=== PATIENT | female | born 1935 | race Caucasian/White ===

== ENCOUNTER → 2023-07-13 11:00 | Outpatient (REF) | payer MEDICARE, SELFPAY | LOC: WOUND 11:00 | PROVIDERS: ATTENDING PHYSICIAN Surgery; REFERRING PHYSICIAN Family Medicine | DX: L97.822 Non-pressure chronic ulcer of other part of left lower leg with fat layer exposed (principal); I87.312 Chronic venous hypertension (idiopathic) with ulcer of left lower extremity; I87.2 Venous insufficiency (chronic) (peripheral); I10 Essential (primary) hypertension; R73.03 Prediabetes; R60.0 Localized edema | CPT/HCPCS: 97597 ==

== ENCOUNTER → 2023-07-20 09:28 | Outpatient (REF) | payer MEDICARE, SELFPAY | LOC: WOUND 09:28 | PROVIDERS: ATTENDING PHYSICIAN Surgery; REFERRING PHYSICIAN Family Medicine | DX: L97.822 Non-pressure chronic ulcer of other part of left lower leg with fat layer exposed (principal); I87.312 Chronic venous hypertension (idiopathic) with ulcer of left lower extremity; I87.2 Venous insufficiency (chronic) (peripheral); Z68.38 Body mass index [BMI] 38.0-38.9, adult; R73.03 Prediabetes; R60.0 Localized edema; I10 Essential (primary) hypertension | CPT/HCPCS: 11042; 11045 ==

== ENCOUNTER → 2023-07-27 09:25 | Outpatient (REF) | payer MEDICARE, SELFPAY | LOC: WOUND 09:25 | PROVIDERS: ATTENDING PHYSICIAN Surgery; REFERRING PHYSICIAN Family Medicine | DX: I87.313 Chronic venous hypertension (idiopathic) with ulcer of bilateral lower extremity (principal); L97.822 Non-pressure chronic ulcer of other part of left lower leg with fat layer exposed; L97.811 Non-pressure chronic ulcer of other part of right lower leg limited to breakdown of skin; I87.2 Venous insufficiency (chronic) (peripheral); I10 Essential (primary) hypertension; Z68.38 Body mass index [BMI] 38.0-38.9, adult; R73.03 Prediabetes; R60.0 Localized edema | CPT/HCPCS: 99213 ==

== ENCOUNTER → 2023-08-18 11:23 | Outpatient (REF) | payer MEDICARE, SELFPAY | LOC: WOUND 11:23 | PROVIDERS: ATTENDING PHYSICIAN Surgery; FAMILY PHYSICIAN Family Medicine | DX: I87.313 Chronic venous hypertension (idiopathic) with ulcer of bilateral lower extremity (principal); L97.822 Non-pressure chronic ulcer of other part of left lower leg with fat layer exposed; L97.811 Non-pressure chronic ulcer of other part of right lower leg limited to breakdown of skin; I87.2 Venous insufficiency (chronic) (peripheral); I10 Essential (primary) hypertension; Z68.38 Body mass index [BMI] 38.0-38.9, adult; R73.03 Prediabetes; R60.0 Localized edema | CPT/HCPCS: 11042; 11045 ==

== ENCOUNTER → 2023-08-25 13:44 | Outpatient (REF) | payer MEDICARE, SELFPAY | LOC: WOUND 13:44 | PROVIDERS: ATTENDING PHYSICIAN Surgery; FAMILY PHYSICIAN Family Medicine | DX: I87.313 Chronic venous hypertension (idiopathic) with ulcer of bilateral lower extremity (principal); L97.822 Non-pressure chronic ulcer of other part of left lower leg with fat layer exposed; L97.811 Non-pressure chronic ulcer of other part of right lower leg limited to breakdown of skin; I87.2 Venous insufficiency (chronic) (peripheral); I10 Essential (primary) hypertension; Z68.38 Body mass index [BMI] 38.0-38.9, adult; R73.03 Prediabetes; R60.0 Localized edema | CPT/HCPCS: 11042; 11045 ==

== ENCOUNTER → 2023-09-01 13:41 | Outpatient (REF) | payer MEDICARE, SELFPAY | LOC: WOUND 13:41 | PROVIDERS: ATTENDING PHYSICIAN Surgery; FAMILY PHYSICIAN Family Medicine | DX: I87.313 Chronic venous hypertension (idiopathic) with ulcer of bilateral lower extremity (principal); L97.822 Non-pressure chronic ulcer of other part of left lower leg with fat layer exposed; L97.811 Non-pressure chronic ulcer of other part of right lower leg limited to breakdown of skin; I87.2 Venous insufficiency (chronic) (peripheral); I10 Essential (primary) hypertension; Z68.38 Body mass index [BMI] 38.0-38.9, adult; R73.03 Prediabetes; R60.0 Localized edema | CPT/HCPCS: 11042; 11045 ==

== ENCOUNTER → 2023-09-08 13:37 | Outpatient (REF) | payer MEDICARE, SELFPAY | LOC: WOUND 13:37 | PROVIDERS: ATTENDING PHYSICIAN Surgery; FAMILY PHYSICIAN Family Medicine | DX: I87.313 Chronic venous hypertension (idiopathic) with ulcer of bilateral lower extremity (principal); L97.822 Non-pressure chronic ulcer of other part of left lower leg with fat layer exposed; L97.811 Non-pressure chronic ulcer of other part of right lower leg limited to breakdown of skin; I87.2 Venous insufficiency (chronic) (peripheral); I10 Essential (primary) hypertension; Z68.38 Body mass index [BMI] 38.0-38.9, adult; R73.03 Prediabetes; R60.0 Localized edema | CPT/HCPCS: 11042; 11045 ==

== ENCOUNTER → 2023-09-15 11:39 | Outpatient (REF) | payer MEDICARE, SELFPAY | LOC: WOUND 11:39 | PROVIDERS: ATTENDING PHYSICIAN Surgery; FAMILY PHYSICIAN Family Medicine | DX: I87.313 Chronic venous hypertension (idiopathic) with ulcer of bilateral lower extremity (principal); L97.822 Non-pressure chronic ulcer of other part of left lower leg with fat layer exposed; L97.811 Non-pressure chronic ulcer of other part of right lower leg limited to breakdown of skin; L03.116 Cellulitis of left lower limb; L03.115 Cellulitis of right lower limb; I87.2 Venous insufficiency (chronic) (peripheral); R60.0 Localized edema; R73.03 Prediabetes | CPT/HCPCS: 99213 ==

== ENCOUNTER 2023-09-15 17:11 | Inpatient (IN) | payer MEDICARE, SELFPAY ==
[2023-09-15 12:00] VITALS: BP 172/92
[2023-09-15 13:47] LABS: % Basophils 0.2 % (0-2); % Eosinophils 0.9 % (0-6); % Immature Granulocytes 0.3 % (0-0.5); % Lymphocytes 21.2 % (20.5-51.1); % Monocytes 8.9 % (1.7-9.3); % Neutrophils 68.5 % (42.2-75.2); Absolute Eosinophils 0.1 10^3/uL (0-0.7); Absolute Lymphocytes 1.4 10^3/uL (1.2-3.4); Absolute Monocytes 0.6 10^3/uL (0.1-0.6); Absolute Neutrophils 4.4 10^3/uL (1.4-6.5); Hematocrit 38.1 % (37.0-47.0); Hemoglobin 12.4 g/dL (12.0-16.0); Mean Corp Hgb Conc. 32.5 g/dL (33.0-37.0); Mean Corpuscular Hgb 28.4 pg (27.0-31.0); Mean Corpuscular Volume 87.2 fL (81.0-99.0); Mean Platelet Volume 8.5 fL (7.4-10.4); Nucleated Red Blood Cells % 0 %; Platelet Count 291 10^3/uL (130-400); Red Blood Cell Count 4.37 10^6/uL (4.20-5.40); Red Cell Dist. Width 14.7 % (11.5-14.5); White Blood Cell Count 6.4 10^3/uL (4.8-10.8)
[2023-09-15] MEDS: TYLENOL 1000 MG PO (13:48)
[2023-09-15 13:50] VITALS: BMI 34.0
[2023-09-15 14:02] LABS: ALT (SGPT) 25 U/L (0-35); AST (SGOT) 32 U/L (14-36); Albumin 4.1 g/dl (3.5-5.0); Alkaline Phosphatase 71 U/L (38-126); Blood Urea Nitrogen 50 mg/dl (7-17); Calcium 9.3 mg/dl (8.4-10.2); Carbon Dioxide 29 mmol/L (22-30); Chloride 95 mmol/L (98-107); Estimated Creatinine Clearance 31 ml/min; Glucose 105 mg/dl (70-99); Potassium 4.3 mmol/L (3.5-5.1); Sodium 131 mmol/L (135-145); Total Bilirubin 0.6 mg/dl (0.2-1.3); Total Protein 7.5 g/dl (6.3-8.2); eGFR 36.41
--- NOTE | 2023-09-15 14:14 | ED.GENMED ---
History of Present Illness
General
Chief Complaint: Skin Problem
Source: patient
Exam Limitations: none
Time Seen by Provider: 09/15/23 13:15
Nursing documentation reviewed up to this point in time: agreed with
Travel History
Have you had any contact with someone who has COVID-19?: No
Do you have any symptoms of coronavirus? Fever > 100 degrees, chills, cough, shortness of breath, sore throat, loss of taste or smell, muscle aches, or headache?: No
History of Present Illness
History of Present Illness:
Patient presents to ED secondary to worsening lower leg infection over the past 2 months. Patient has been evaluated by her primary care physician as well as urgent care center, and has already completed multiple antibiotics, without improvement in
symptoms. In addition, patient recently has been evaluated by wound care center, including this morning. Wound care center physician, Dr. Collazo, felt that patient's infection requires IV antibiotics. Denies fever or chills. Denies nausea or
vomiting. However, patient does report decreased appetite and generalized weakness. Denies diarrhea. Denies abdominal pain. Denies headache or dizziness.
Past History
Past History
ED Past Medical History: HTN and Hypercholesterolemia
ED Past Surgical History: Gynecological and Orthopedic
Social History
Tobacco: Non-smoker
Alcohol: None
Drug: None
Personal:
Living: with family
Review of Systems
Review of Systems
Allergies reviewed?: Yes
All Other Systems: ROS reviewed and negative except as documented in HPI and ROS
Constitutional: Reports no symptoms; Denies fever
EENT: Reports no symptoms
ABD/GI: Reports no symptoms
Musculoskeletal: Reports other (leg pain)
Skin: Reports other (leg wound/infection)
Neurological: Reports weakness; Denies headache
Phy Exam
Physical Exam
Physical Exam:
Physical Exam
General: mild painful distress, not acutely ill. afebrile
Head: nc/at. eomi
Neck: supple. normal range of motion.
Abdomen: normal bowel sounds. not tender.
Neuro: alert and oriented. no focal neurological deficits
Skin: warm to touch.
Psychiatric: well kept. interactive and cooperative
Extremities: LE b/l erythema with multiple areas of ulceration with purulent drainage.
Course
Orders/Labs/Results
Orders:
Orders
09/15/23 12:04
Electrocardiogram (*1) Urgent
Reason for Study: Vertigo / Dizzy
09/15/23 12:05
EKG- Treatment ONCE
09/15/23 13:31
Acetaminophen [Tylenol] 1,000 mg PO NOW STA
09/15/23 13:38
Complete Blood Count/With Diff Urgent
Comprehensive Metabolic Panel Urgent
Lactic Acid Q4H
Comment: CANCEL 2nd LACTIC ACID IF 1st LACTIC ACID IS LESS THAN 2
Magnesium Urgent
Blood Culture Q30M
DAVID Source: Blood/Venous
Specimen Description:
Blood Culture Q30M
DAVID Source: Blood/Venous
Specimen Description:
09/15/23 14:13
Vancomycin 1 Gram/200 ml [Vancocin] 1 gram in 200 ml IV NOW
09/15/23 14:14
0.9% Sodium Chloride 500 ml [Nss] 500 ml IV BOLUS
09/15/23 14:16
Piperacillin/Tazo 3.375 Gram [Zosyn] 3.375 gram in 50 ml IV NOW
09/15/23 Dinner
Regular
At Your Request: Limited Participation
09/15/23 15:28
Peripheral Venous Lwr Ext Bilat US [US Periph Venous LOWER Ext Josué] Urgent
Comment:
Reason For Exam: bilateral lower ext edema
09/15/23 15:30
Admit/Transfer Patient As Directed
Co-Sign Provider:
Level of Care: Inpatient admission
Assign to:: Medical/Surgical
Physician / Group: [place]
Diagnosis: Cellulitis, Infected Venous Wounds
Reason for Hospitalization: IV abx, wound care and ID consult
Expected length of stay greater than two midnights?: Yes
ELOS- Estimated Length of Stay in days: 3
I certify the patient meets the requirements for IP care: Yes
09/15/23 15:33
Code Status As Directed
Resuscitation Status: Do not resuscitate
Reached after discussion with pt or family/Healthcare POA: Yes
DNR Bracelet Application ONCE
09/15/23 16:37
HydrALAZINE [Apresoline] 5 mg IV Q6HPRN PRN
09/15/23 17:28
Urinalysis Reflex To Culture Urgent
Date Specimen was Collected: 09/15/23
Time Specimen was Collected: 17:27
09/15/23 20:07
0.9% Sodium Chloride 500 ml [Nss] 500 ml IV 50 mls/hr
Acetaminophen [Tylenol] 650 mg PO Q4HPRN PRN
Heparin 5,000 units SC Q8
09/15/23 20:07
INFECTIOUS DISEASE CONSULT Routine
Consulting Provider: Elisha Ernandez
Was physician already notified: Yes
Activity As Directed
Activity Level: Out of Bed-Early Mobility
Bladder Scan As Directed
Follow Bladder Retention/Intermittent Cath Algorithm?: Yes
PRN if no void in __ hours: 6
Frequency: Per Retention Algorithm
If Bladder Scan Result >: 400
then:: Straight cath
Intake/ Output As Directed
Frequency: Per unit guidelines
Straight Cath As Directed
Frequency: Per Retention Algorithm
Additional Instructions: straight cath as needed per acute urinary retention algorithm for 24 hrs
Additional Instructions: for bladder scan greater than 400 mL
Vital Signs As Directed
Frequency: Per unit guidelines
Weight As Directed
Frequency: Daily
Ot Eval And Treat Routine
Pt Eval And Treat Routine
Activity Level: Out of Bed-Early Mobility
DX Deep Vein Thrombosis Video Routine
09/15/23 22:00
Gabapentin [Neurontin] 600 mg PO HS
Ropinirole [Requip] 0.5 mg PO QID
09/16/23 06:00
Echo 2D MMode Color/Doppler Routine
Reason for Study: LE swelling
09/16/23 06:31
Basic Metabolic Panel IN AM
Complete Blood Count/No Diff IN AM
09/16/23 08:00
Gabapentin [Neurontin] 300 mg PO BID@0800,1400
Abnormal Lab Results
09/15/23
13:38
MCHC 32.5 L g/dL
(33.0-37.0)
RDW 14.7 H %
(11.5-14.5)
Sodium 131 L mmol/L
(135-145)
Chloride 95 L mmol/L
(98-107)
BUN 50 H mg/dl
(7-17)
Creatinine 1.4 H mg/dL
(0.6-1.0)
Glucose 105 H mg/dl
(70-99)
09/15/23 13:38
09/15/23 13:38
Vital Signs
Initial and Last Documented VS:
Initial Vital Signs
Temp Pulse Resp BP Pulse Ox
97.7 F 92 20 172/92 93
09/15/23 12:00 09/15/23 12:00 09/15/23 12:00 09/15/23 12:00 09/15/23 12:00
Last Documented Vital Signs
Temp Pulse Resp BP Pulse Ox
97.2 F 86 18 137/60 95
09/15/23 23:01 09/15/23 23:01 09/15/23 23:01 09/15/23 23:01 09/15/23 23:01
MDM/Problems Addressed
MDM/Problems Addressed:
Patient will be admitted for cellulitis, failed outpatient therapy.
Blood culture pending.
*Critical Care Note
Total Time (30-74mins, 75-104mins- exclusive of procedures): Not Applicable
ED Attending Note
-
Portions of this chart may have been created with voice recognition software.� Occasional wrong word or��sound alike� substitutions may have occurred due to the inherent limitations of voice recognition software.
Discharge Plan
Departure
Patient Disposition: Admit
Date of Disposition: 09/15/23
Time of Disposition: 14:19
Admit to: Med/Surg
Presentation/result/management discussed w/ accepting MD/DO: Hospitalist
Discharge Problem:
Bilateral cellulitis of lower leg
Interventions
Interventions:
*Risk Screen - Suicide Last Done: 09/15/23 13:10
*General Assessment Last Done: 09/15/23 17:35
*Neglect/Abuse Screening Last Done: 09/15/23 13:10
ED- Fall Risk Assessment Last Done: 09/15/23 20:09
*ED COVID-19 Vaccine History Last Done: 09/15/23 17:35
*Nursing Disposition Last Done: 09/15/23 20:09
ED-Skin Assessment Last Done: 09/15/23 17:34
Discharge Date and Time
Discharge Date/Time: 09/15/23 20:09
[2023-09-15] MEDS: ZOSYN 50 IV (14:30)
[2023-09-15] MEDS: NSS 500 IV ×2 (14:31→20:47)
[2023-09-15] MEDS: VANCOCIN 200 IV (15:16)
--- NOTE | 2023-09-15 15:37 | HPS.HSE ---
Addendum entered and electronically signed by Nirav Mcpherson MD 09/15/23 16:45:
I saw and examined the patient.
The DICER OPERATOR or PA's note was reviewed and I agree with the note.
Comment: 88-year-old female with past medical history presented syndrome, lumbar radiculopathy, chronic venous insufficiency, essential hypertension, bulimia, osteoporosis came to the hospital with worsening lower extremity wounds. Patient has been
following up at wound care center and sees Dr. Collazo outpatient. She has tried multiple courses of oral antibiotics and the wound has not much improved. Today she was at wound care center and was referred here for IV antibiotics. Consult
infectious disease. Start empiric antibiotics. Check venous Doppler ultrasound. gentle hydration and monitor. check echo. suspect she has some CKD. check urine studies.
General:�Comfortable and Conversant
HEENT:�Anicteric and Moist mucous membranes
Respiratory:�Clear and Non Labored Respirations
Cardiac:�S1/S2 and Regular Rhythm
GI:�Soft and Non Tender
Rectal:�Deferred by Provider
Musculoskeletal:�No Clubbing, No Cyanosis and Other (+3 edema bilateral lower ext)
Skin:�Warm and Other (Left lateral lower ext wound with increased slough and slight foul smell; Left Lower Ext with increased warmth to touch)
Neuro:�Awake, Alert
Psych:�Calm
I spent a total of 77 minutes with the patient or on the floor. More than 50% of this time involved counseling and coordination of care.
Original Note:
Family Physician
-
Family Physician: Mary Griffin MD
Chief Complaint
-
Worsening Lower Ext Wounds
History of Present Illness
Patient is an 88-year-old female past medical history of hypertension, hyperlipidemia, and chronic venous insufficiency who presents with worsening lower extremity wounds. Patient has been following at the wound care center. Wound care physician
expressed concern for worsening infection and sent her to the emergency department for evaluation. Patient reports she has received a few courses of oral antibiotics over the last several months, with most recent course in July. She denies
fevers, sweats or chills.
Medical History
Past Medical History
Past Medical History: Reports Other
Additional Past Medical History:
Essential Hypertension
Hyperlipidemia
Restless Leg Syndrome
Lumbar Radiculopathy
Chronic Venous Insufficiency
Osteoporosis
Past Surgical History: Reports Other
Additional Past Surgical History:
Left Hip Surgery
Hysterectomy
Varicose Vein Stripping
Hernia Repair
Social History
Tobacco: Non-smoker
Alcohol: None
Family History
Family History: Not pertinent
Allergies / Home Medications
Allergies reflects when Allergies were last updated in [employer].
Home Medications with original date entered in [employer]
Allergy/Medication List:
Allergies
Allergy/AdvReac Type Severity Reaction Status Date / Time
lidocaine Allergy Unknown Verified 06/13/22 18:36
Home Medications
lisinopril 20 mg-hydrochlorothiazide 25 mg tablet 1 tab PO DAILY 06/13/22
ropinirole 0.5 mg tablet 0.5 mg PO QID 06/13/22
ibuprofen 400 mg tablet 400 mg PO Q6HPRN PRN mod pain #1 tab 06/16/22
alendronate 70 mg tablet (Fosamax) 70 mg PO QWEEK 09/15/23
furosemide 20 mg tablet (Lasix) 20 mg PO DAILY 09/15/23
gabapentin 600 mg tablet 600 mg PO TID 09/15/23
sodium hypochlorite 0.125 % solution (Dakin's Solution) 1 applic topical DAILY 09/15/23
Review of Systems
-
A 12 point ROS was completed and negative except as noted: Yes
Constitutional: Denies Fever or Chills
Respiratory: Denies Cough or Trouble Breathing
Cardiac: Denies Chest Pain or Palpitations
Abdomen/GI: Denies Abdominal Pain, Nausea or Vomiting
Physical Exam
Vital Signs
Vital Signs
Temp Pulse Resp BP Pulse Ox
97.7 F 92 20 172/92 93
09/15/23 12:00 09/15/23 12:00 09/15/23 12:00 09/15/23 12:00 09/15/23 12:00
Physical Exam
General: Comfortable and Conversant
HEENT: Anicteric and Moist mucous membranes
Respiratory: Clear and Non Labored Respirations
Cardiac: S1/S2 and Regular Rhythm
GI: Soft and Non Tender
Rectal: Deferred by Provider
Musculoskeletal: No Clubbing, No Cyanosis and Other (+3 edema bilateral lower ext)
Skin: Warm and Other (Left lateral lower ext wound with increased slough and slight foul smell; Left Lower Ext with increased warmth to touch)
Neuro: Awake, Alert and Other (Patient noted to be slurring her words slightly and family concurs; Apparently patient just had her gabapentin dose increased)
Psych: Calm
Laboratory Results
-
09/15/23 13:38
09/15/23 13:38
Laboratory Results
Lactic Acid Cancelled 09/15/23 17:30
Total Bilirubin 0.6 mg/dl (0.2-1.3) 09/15/23 13:38
AST 32 U/L (14-36) 09/15/23 13:38
ALT 25 U/L (0-35) 09/15/23 13:38
Alkaline Phosphatase 71 U/L (38-126) 09/15/23 13:38
Data Reviewed
-
Lab Data: Labs Reviewed by me
Impression/Plan
-
Left Lower Extremity Cellulitis, secondary to infected chronic venous insufficiency wounds
-Consult Wound Care
-Consult Infectious Disease
-Continue vancomycin and Zosyn
-Check lower ext doppler
Acute Kidney Injury
-Hold Lasix, Lisinopril and HCTZ
-Check urinalysis
-Check bladder scans
-Give small amount of IVFs overnight
-Recheck creatinine in AM
Essential Hypertension
-BP meds on hold due to ANGEL LUIS
-Monitor BP closely
Restless Leg Syndrome
-Continue Ropinirole
Lumbar Radiculopathy
-Decrease gabapentin dose 300mg BID with 600mg at Bedtime
DVT proph: SC Heparin
Code Status: DNR
[2023-09-15 17:47] LABS: Urine Albumin Trace (Neg - Trace); Urine Bilirubin Negative (Negative); Urine Character Very Cloudy (Clear); Urine Color Yellow; Urine Glucose Negative (Negative); Urine Ketone Negative (Negative); Urine Leukocyte 2+ (Negative); Urine Nitrite Negative (Negative); Urine Occult Blood Negative (Negative); Urine Specific Gravity 1.015 (<1.030); Urine Urobilinogen Negative (Neg - 1+)
[2023-09-15 17:53] LABS: Urine Amorphous Seen
[2023-09-15 17:54] LABS: Urine Bacteria Many (Negative); Urine Red Blood Cell 0-2 /HPF (0-2)
--- NOTE | 2023-09-15 18:03 | CON.ID ---
Consultation
-
Date/Time Consultation Requested: 09/15/2023, 1530
Date/Time Consultation Performed: 09/15/2023
Requesting Provider: Eveline Riley PA-C
Performing Provider: Dr. Elisha Ernandez
Reason for Consultation: Infected wounds
Chief Complaint / Past History
Chief Complaint
88 year old female with
History of Present Illness
88 year old female with HTN, venous insufficiency who developed bilateral LE non-healing wounds in Jun 2023. She has been going to wound care center. The right LE wound healed. The left LE wound was getting better until past few days when she had
increased drainage and erythema. She was seen at [facility] today who sent her to ED. The left foot and leg is very red. The right leg minimally more red than baseline, + weepage. No fevers /chills. She feels more tired than usual. She reports
compliance with compression.
Past History
Additional Past Medical History:
Hypertension
Hyperlipidemia
Restless Leg Syndrome
Lumbar Radiculopathy
Chronic Venous Insufficiency
Osteoporosis
Left Hip Surgery
Hysterectomy
Varicose Vein Stripping
Hernia Repair
Allergy History:
lidocaine Allergy (Verified 06/13/22 18:36)
Unknown
Medications Reviewed: Yes
Current Antibiotics:
Vancomycin
Zosyn
Social History
Tobacco: Non-Smoker
Alcohol: None
Drug: None
Family History
Family History: Not Pertinent
Review of Systems
Review of Systems
General: Negative Fever, Chills or Change in Appetite
HEENT: Negative Sinus Problems, Headache or Pharyngitis
Cardiovascular: Negative Chest Pain
Respiratory: Negative Dyspnea or Cough
Gasteroenterology: Negative Nausea or Vomiting
Genital / Urological: Negative Dysuria or Flank Pain
Endocrine: Weakness
Neurological: Negative Headache or Dizziness
All systems: All other systems were reviewed and were negative
Vital Signs
Temp Pulse Resp BP Pulse Ox
97.7 F 92 20 172/92 93
09/15/23 12:00 09/15/23 12:00 09/15/23 12:00 09/15/23 12:00 09/15/23 12:00
Physical Exam
Physical Exam
Constitutional: No Acute Distress and Obese
Eyes: No Conjunctival Hemorrhage and Sclera Anicteric
Cardiovascular: Regular Rate and S1/S2
Pulmonary: Clear
Gastrointestinal: Soft, Non Tender, Non Distended and Normal Bowel Sounds
Genito-Urinary: Negative CVA Tenderness
Extremities: Edema (BLE 2+)
Wound: Other (left distal leg large venous stasis wound with yellow and greenish exudate surrounded by bright erythema that extends down to foot. R distal leg with venous insufficiency pink erythema with serous drainage.)
Neurological: AO x 3
Lab / Diagnostic Study Results
09/15/23 13:38
09/15/23 13:38
Abs Immat Gran (auto) 0.0 10^3/uL (0-0.05) 09/15/23 13:38
Absolute Neuts (auto) 4.4 10^3/uL (1.4-6.5) 09/15/23 13:38
Absolute Lymphs (auto) 1.4 10^3/uL (1.2-3.4) 09/15/23 13:38
Absolute Monos (auto) 0.6 10^3/uL (0.1-0.6) 09/15/23 13:38
Absolute Basos (auto) 0.0 10^3/uL (0-0.2) 09/15/23 13:38
Immature Gran % 0.3 % (0-0.5) 09/15/23 13:38
Neutrophils % 68.5 % (42.2-75.2) 09/15/23 13:38
Lymphocytes % 21.2 % (20.5-51.1) 09/15/23 13:38
Monocytes % 8.9 % (1.7-9.3) 09/15/23 13:38
Eosinophils % 0.9 % (0-6) 09/15/23 13:38
Basophils % 0.2 % (0-2) 09/15/23 13:38
Lactic Acid Cancelled 09/15/23 17:30
Ur Squamous Epith Cells 11-15 /LPF (Few) 09/15/23 17:28
Microbiology Results
Micro:
09/15/23 17:28 Urine Culture - Pending
Urine
09/15/23 13:38 Blood Culture - Pending
Blood/Venous
09/15/23 13:38 Blood Culture - Pending
Blood/Venous
Assessment / Plan
# LLE cellulitis with infected venous stasis wound
-Narrow Vanco/Zosyn to cefepime 1g IV q6h.
- Wound Consult to see
-recommend compression with RASHEED-WRAP
# ANGEL LUIS
- abx dosing adjusted.
-avoid Vanco/zosyn combo for now.
[2023-09-15 20:05] VITALS: BP 126/47; BMI 33.4
[2023-09-15] MEDS: NEURONTIN 600 MG PO (20:46)
[2023-09-15] MEDS: HEPARIN 5000 UNITS SC (20:47)
[2023-09-15] MEDS: TYLENOL 650 MG PO (20:48)
[2023-09-15] MEDS: REQUIP 0.5 MG PO (21:02)
--- NOTE | 2023-09-15 21:30 | PTCARENOTE ---
Patient received from ED via stretcher. Patient with soiled dressings to B/L LE. Wounds/dressing with a foul smelling odor. A large, chronic venous stasis wound to left leg, yellow sloughing present. Wound care performed to both LE. Patient educated
on importance of turning/repositioning frequently in the bed. Patient verbalized a good understanding. Call burrows placed within reach of patient. Care ongoing.
[2023-09-15 23:01] VITALS: BP 137/60
[2023-09-15] MEDS: STERILE WATER FOR INJECTION 10 ML IV (23:16)
[2023-09-15] MEDS: MAXIPIME 1000 MG IV (23:16)
--- NOTE | 2023-09-16 03:31 | DOWNTIME ---
There was a [employer] Client [employer]el [employer] Downtime on 09/16/2023 from 0100 to 09/16/2023 at 0322. Downtime documentation of patient's care, including medication administrations, has been reconciled in the electronic record per guidelines. Refer to the
patient's paper chart under the miscellaneous tab to see printed paper medication records and downtime forms.
[2023-09-16] MEDS: STERILE WATER FOR INJECTION 10 ML IV ×3 (05:40→19:41)
[2023-09-16] MEDS: MAXIPIME 1000 MG IV ×2 (05:40→12:57)
[2023-09-16 06:00] VITALS: BMI 33.4
[2023-09-16 06:44] LABS: Hematocrit 36.9 % (37.0-47.0); Hemoglobin 12.2 g/dL (12.0-16.0); Mean Corp Hgb Conc. 33.1 g/dL (33.0-37.0); Mean Corpuscular Volume 87.6 fL (81.0-99.0); Mean Platelet Volume 8.4 fL (7.4-10.4); Platelet Count 252 10^3/uL (130-400); Red Blood Cell Count 4.21 10^6/uL (4.20-5.40); Red Cell Dist. Width 14.6 % (11.5-14.5); White Blood Cell Count 6.6 10^3/uL (4.8-10.8)
[2023-09-16 07:00] VITALS: BP 142/61
[2023-09-16 07:42] LABS: Blood Urea Nitrogen 35 mg/dl (7-17); Carbon Dioxide 28 mmol/L (22-30); Chloride 99 mmol/L (98-107); Estimated Creatinine Clearance 61 ml/min; Glucose 128 mg/dl (70-99); Sodium 130 mmol/L (135-145); eGFR > 60.00
[2023-09-16] MEDS: REQUIP 0.5 MG PO ×4 (07:43→23:00)
[2023-09-16] MEDS: HEPARIN 5000 UNITS SC (07:43)
[2023-09-16] MEDS: NEURONTIN 300 MG PO ×2 (07:43→13:04)
--- NOTE | 2023-09-16 11:14 | W.PN.HOSP.TC ---
Today's Communication/Plan
-
Monitor vital signs
see plan
Continue antibiotics
Restart lisinopril
PT/OT
Assessment / Plan
Assessment / Plan
General:�Comfortable and Conversant
HEENT:�Anicteric and Moist mucous membranes
Respiratory:�Clear and Non Labored Respirations
Cardiac:�S1/S2 and Regular Rhythm
GI:�Soft and Non Tender
Musculoskeletal: Other (+3 edema bilateral lower ext)
Skin:�Warm and Other (Left lateral lower ext wound with increased slough and slight foul smell; Left Lower Ext with increased warmth to touch)
Neuro:�Awake, Alert
Psych:�Calm
Left Lower Extremity Cellulitis, secondary to infected chronic venous insufficiency wounds
-wound care
-ID following
cw abx per ID
venous doppler neg for DVT
Acute Kidney Injury
resolved
-Hold Lasix, HCTZ; restart lisinopril
-UA noted; denies dysuria
-Check bladder scans
-Recheck creatinine in AM
Essential Hypertension
-BP meds on hold due to ANGEL LUIS
restart lisinopril
Restless Leg Syndrome
-Continue Ropinirole
Lumbar Radiculopathy
-Decrease gabapentin dose 300mg BID with 600mg at Bedtime
DVT proph: SC Heparin
Code Status: DNR
Anticipated Discharge: > 48 hours
Subjective/Interval History
-
Date of Service: September 16, 2023
has some pain
Objective Data
-
Labs:
Laboratory Results
09/16/23
06:31
WBC 6.6
Hgb 12.2
Hct 36.9 L
Plt Count 252
Sodium 130 L
Potassium 4.0
Chloride 99
Carbon Dioxide 28
BUN 35 H
Creatinine 0.7
Glucose 128 H
Calcium 9.0
Vital Signs:
Vital Signs
Temp Pulse Resp BP Pulse Ox
98.6 F 86 17 142/61 94
09/16/23 07:00 09/16/23 07:00 09/16/23 07:00 09/16/23 07:00 09/16/23 07:00
I&O
09/15/23 09/16/23 09/17/23
06:59 06:59 06:59
Intake Total 960 / 960
Output Total 350 / 350
Balance 610 / 610
--- NOTE | 2023-09-16 11:52 | WOUNDNOTE ---
LEFT LATERAL LEG
--- NOTE | 2023-09-16 11:52 | WOUNDNOTE ---
LEFT MEDIAL LEG
--- NOTE | 2023-09-16 11:52 | WOUNDNOTE ---
RIGHT MEDIAL LEG
--- NOTE | 2023-09-16 11:53 | WOUNDNOTE ---
RIGHT LATERAL LEG
--- NOTE | 2023-09-16 12:09 | WOUNDNOTE ---
[facility] RN note: Patient admitted with cellulitis
See H&P for complete history.
PMH: HTN, hyperlipidemia, arthritis, venous wounds
Wound Location and type/assessment: Patient admitted with: Stage 2 sacral PI and bilateral venous wounds. Patient known to [facility] and was sent to ER yesterday by Dr. Collazo with worsening left LE venous wound (see wound descriptions in worklist).
She reports wearing Farrow wraps at home and stated the wounds on left leg had worsened in the past 1-2 weeks. Patient reported pain and tenderness during wound care and stated she could not tolerate Dakins moistened gauze on wound. Patient had
gabapentin as ordered prior to wound care. + pedal pulses bilaterally with +2 edema and venous stasis changed. Spoke to DANE Winkler who reported stage 2 PI of sacrum on admission. A photo was not taken of sacrum as patient could not tolerate turning
due to bilateral leg pain. Heels intact.
Appetite: Good
Pressure redistribution devices in place: Static air overlay, heels off-loaded with pillows under calves
Plan: Left leg cleaned with Dakins and local wound care provided. Will recommend BID wound care to left LE due to drainage. Patient prefers use of adaptic and states this helps pain when removing dressing. Static air overlay added to bed and
properly inflated. DANE Winkler reported use of Calazime for stage 2 PI. RASHEED wraps applied bilaterally. TT hospitalist and requested additional pain medication prior to BID wound care. Will confirm orders with hospitalist and update nurse. Updated
care plan and will follow as needed.
Recommend follow up at wound care center upon discharge.
[2023-09-16] MEDS: DAKIN'S SOLUTION 0.125% 1/4 STRENGTH 10 ML TOPICAL (12:26)
[2023-09-16 12:55] VITALS: BP 172/71; PULSE 91; O2SAT 98
[2023-09-16] MEDS: ZESTRIL 20 MG PO (12:58)
--- NOTE | 2023-09-16 13:07 | W.PN.ID1 ---
Date of Service
Date of Service: September 16, 2023
Today's Communication
Continue cefepime.
Assessment / Plan
# LLE cellulitis with infected venous stasis wound
- Continue cefepime (d2)
-Continue compression with RASHEED-WRAP
# ANGEL LUIS resolved
-Increased cefepime dosing
#Additional Past Medical History:
Hypertension
Hyperlipidemia
Restless Leg Syndrome
Lumbar Radiculopathy
Chronic Venous Insufficiency
Osteoporosis
Left Hip Surgery
Hysterectomy
Varicose Vein Stripping
Hernia Repair
Chief Complaint
-: Cellulitis
Vital Signs / Physical Exam
Vital Signs
Vital Signs
Temp Pulse Resp BP Pulse Ox
98.6 F 86 17 142/61 94
09/16/23 07:00 09/16/23 07:00 09/16/23 07:00 09/16/23 12:58 09/16/23 08:15
Physical Exam
Constitutional: No Acute Distress and Comfortable
Extremities: Edema (decreased LLE) and Erythema
Wound: Other (Reviewed today's wound photos: distal LLE remains bright red with large lateral wound yellowish slough)
Objective Data
Lab Data
Lab Results
09/16/23 06:31
09/16/23 06:31
Estimated Creat Clear 61 ml/min 09/16/23 06:31
Lactic Acid Cancelled 09/15/23 17:30
Total Bilirubin 0.6 mg/dl (0.2-1.3) 09/15/23 13:38
AST 32 U/L (14-36) 09/15/23 13:38
ALT 25 U/L (0-35) 09/15/23 13:38
Alkaline Phosphatase 71 U/L (38-126) 09/15/23 13:38
Most recent labs reviewed.
Micro Results:
09/15/23 17:28 Urine Culture - Pending
Urine
09/15/23 13:38 Blood Culture - Pending
Blood/Venous
09/15/23 13:38 Blood Culture - Pending
Blood/Venous
--- NOTE | 2023-09-16 13:15 | PTCARENOTE ---
pt c/o pain, refused tylenol PRN morphine ordered. when this nurse went bedside to inform pt, daughter states 'I have a major problem with that. that has too many side effects. it can effect her breathing, she does not need it.' pt reports her pain
is 8/10 informed morphine is appropriate for that level of pain. When asked if she would like prn morphine pt reports 'I don't know right now, ask me later' CB in reach
[2023-09-16 14:04] VITALS: BP 172/71; PULSE 92; O2SAT 96
--- NOTE | 2023-09-16 14:25 | CM ---
Reviewed chart, met with patient to obtain information for assessment. Patient stated that she lives with her spouse who is on hospice, her grandson and family support is close through her sister in law. Her house is two stories with two steps to
enter.
Patient stated that she was independent prior to her leg being sore. She was able to do her ADLs, personal care, dressing and bathing. She was ambulating with an r walker/rollator. 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
Patient has had VN services in the past. She has not been to a SNF although she thinks she may need one post this admission.
Patient has a prescription plan and uses [facility] for all of her medications. Her PCP is Mary Griffin.
As clinical information becomes available, will review and send to area SNFs. Patient was agreeable to this plan.
Plan: Case management will continue to follow and assist with discharge planning. SNF vrs home with VN services.
[2023-09-16 15:30] VITALS: BP 157/52
[2023-09-16] MEDS: LOVENOX 40 MG SC (17:43)
[2023-09-16] MEDS: MAXIPIME 2000 MG IV (19:41)
[2023-09-16] MEDS: DAKIN'S SOLUTION 0.125% 1/4 STRENGTH 473 ML TOPICAL (19:42)
[2023-09-16] MEDS: NEURONTIN 600 MG PO (21:06)
[2023-09-16] MEDS: MORPHINE SULFATE 1 MG IV (22:14)
[2023-09-16] MEDS: TYLENOL 650 MG PO (22:54)
[2023-09-16 23:19] VITALS: BP 114/55
[2023-09-17] MEDS: MAXIPIME 2000 MG IV ×3 (03:19→20:03)
[2023-09-17] MEDS: STERILE WATER FOR INJECTION 10 ML IV ×3 (03:20→20:03)
[2023-09-17] MEDS: REQUIP 0.5 MG PO ×4 (05:04→23:43)
[2023-09-17 06:00] VITALS: BMI 34.7
[2023-09-17 07:00] VITALS: BP 94/50
[2023-09-17] MEDS: NEURONTIN 300 MG PO ×2 (08:09→14:10)
[2023-09-17] MEDS: DAKIN'S SOLUTION 0.125% 1/4 STRENGTH 473 ML TOPICAL ×2 (08:12→21:30)
[2023-09-17] MEDS: ZESTRIL 20 MG PO (08:13)
[2023-09-17 09:17] LABS: % Basophils 0.1 % (0-2); % Eosinophils 0.7 % (0-6); % Immature Granulocytes 0.3 % (0-0.5); % Lymphocytes 13.5 % (20.5-51.1); % Monocytes 7.1 % (1.7-9.3); % Neutrophils 78.3 % (42.2-75.2); Absolute Eosinophils 0.1 10^3/uL (0-0.7); Absolute Monocytes 0.5 10^3/uL (0.1-0.6); Hematocrit 33.9 % (37.0-47.0); Hemoglobin 11.3 g/dL (12.0-16.0); Mean Corp Hgb Conc. 33.3 g/dL (33.0-37.0); Mean Corpuscular Hgb 28.8 pg (27.0-31.0); Mean Corpuscular Volume 86.3 fL (81.0-99.0); Mean Platelet Volume 8.8 fL (7.4-10.4); Nucleated Red Blood Cells % 0 %; Platelet Count 276 10^3/uL (130-400); Red Blood Cell Count 3.93 10^6/uL (4.20-5.40); Red Cell Dist. Width 14.6 % (11.5-14.5); White Blood Cell Count 7.6 10^3/uL (4.8-10.8)
--- NOTE | 2023-09-17 09:53 | PN.CDI ---
CDI
- -
CDI:
Physician Documentation Request
Admit Date: 09/15/23 17:11
Dear Doctor Ky,
Patient admitted for cellulitis.
09/15 Wound Care Note: 'Spoke to DANE Winkler who reported stage 2 PI of sacrum on admission.'
Physician documentation of the type and location of wounds is required for compliant documentation. Based on the above clinical findings and your assessment, please provide the following in your progress note:
1. Location of the ulcer/wound, including laterality.
2. Type (etiology) of ulcer/wound:
- Diabetic ulcer
- Arterial (ischemic) ulcer
- Traumatic wound
- Venous stasis ulcer
- Pressure (decubitus) ulcer
- Non-healing surgical wound
- Other
- Unable to determine
3. For a non-pressure ulcer, please indicate the depth/severity:
- Limited to the breakdown of skin
- With fat layer exposed
- With necrosis of muscle
- With necrosis of bone
- Other
- Unable to determine
4. If a pressure ulcer, please also include the stage* of the ulcer:
- Stage 1 - Skin intact, non-blanchable redness
- Stage 2 - Partial thickness loss of dermis, includes intact or open blister
- Stage 3 - Full thickness tissue not including bone, tendon or muscle
- Stage 4 - Full thickness tissue loss, including exposed bone, tendon or muscle
- Unstageable - Full thickness loss in which the base of the ulcer is covered by slough (yellow, frederick, de la rosa, green or brown) and/or eschar (frederick, brown or black) in the wound bed.
- Unable to determine
Use of terms such as suspected, likely, concern for, or probable (associated with a specific diagnosis that is being evaluated, monitored, or treated as if it exists) are acceptable and can be coded in the inpatient setting, when documented at the
time of discharge.
Thank you,
La Pineda RN, BSN
CDI Specialist
Available via [employer] text
Please use your independent medical judgment in providing your response.
*Source: National Pressure Ulcer Advisory Panel (NPUAP)
[2023-09-17 10:06] LABS: Blood Urea Nitrogen 21 mg/dl (7-17); Calcium 8.7 mg/dl (8.4-10.2); Carbon Dioxide 29 mmol/L (22-30); Chloride 101 mmol/L (98-107); Estimated Creatinine Clearance 72 ml/min; Glucose 141 mg/dl (70-99); Potassium 4.3 mmol/L (3.5-5.1); Sodium 134 mmol/L (135-145); eGFR > 60.00
--- NOTE | 2023-09-17 10:58 | W.PN.HOSP.TC ---
Addendum entered and electronically signed by Nirav Mcpherson MD 09/17/23 11:04:
stage 2 PI of sacrum
Original Note:
Today's Communication/Plan
-
Monitor vital signs
see plan
Continue with antibiotics
Continue with wound care
PT/OT
Restart Lasix
Assessment / Plan
Assessment / Plan
General:�Comfortable and Conversant
HEENT:�Anicteric and Moist mucous membranes
Respiratory:�Clear and Non Labored Respirations
Cardiac:�S1/S2 and Regular Rhythm
GI:�Soft and Non Tender
Musculoskeletal: Other (+3 edema bilateral lower ext)
Skin:�Warm and Other (Left lateral lower ext wound with increased slough and slight foul smell; Left Lower Ext with increased warmth to touch)
Neuro:�Awake, Alert
Psych:�Calm
Left Lower Extremity Cellulitis, secondary to infected chronic venous insufficiency wounds
-wound care
-ID following
cw abx per ID
venous doppler neg for DVT
Dilaudid as needed for wound change
she has an appointment in october for laser surgery for her venous insufficiency
Acute Kidney Injury
resolved
-hold HCTZ; cw lisinopril, restart Lasix
-UA noted; denies dysuria
-Check bladder scans
Mild hyponatremia
Monitor
Essential Hypertension
Continue with lisinopril, restart Lasix
hold HCTZ for now
Restless Leg Syndrome
-Continue Ropinirole
Lumbar Radiculopathy
-Decrease gabapentin dose 300mg BID with 600mg at Bedtime
DVT proph: SC Heparin
Code Status: DNR
Anticipated Discharge: > 48 hours
Subjective/Interval History
-
Date of Service: September 17, 2023
Still has some pain at times
Objective Data
-
Labs:
Laboratory Results
09/17/23
08:47
WBC 7.6
Hgb 11.3 L
Hct 33.9 L
Plt Count 276
Sodium 134 L
Potassium 4.3
Chloride 101
Carbon Dioxide 29
BUN 21 H
Creatinine 0.6
Glucose 141 H
Calcium 8.7
Vital Signs:
Vital Signs
Temp Pulse Resp BP Pulse Ox
98.6 F 84 18 122/67 98
09/17/23 07:00 09/17/23 07:00 09/17/23 07:00 09/17/23 08:13 09/17/23 08:53
I&O
09/16/23 09/17/23 09/18/23
06:59 06:59 06:59
Intake Total 2400 / 2400
Output Total 1850 / 1850
Balance 550 / 550
--- NOTE | 2023-09-17 11:08 | W.PN.ID1 ---
Date of Service
Date of Service: September 17, 2023
Today's Communication
Continue cefepime.
Assessment / Plan
# LLE cellulitis with infected venous stasis wound
- Improving
- Continue cefepime (d3)
- Moisturize dry skin with Lac-hydrin bid.
- Continue wound care
-Continue compression with RASHEED-WRAP
# ANGEL LUIS resolved
#Additional Past Medical History:
Hypertension
Hyperlipidemia
Restless Leg Syndrome
Lumbar Radiculopathy
Chronic Venous Insufficiency
Osteoporosis
Left Hip Surgery
Hysterectomy
Varicose Vein Stripping
Hernia Repair
Chief Complaint
-: Cellulitis
Subjective / Review of Systems
c/o leg spasms and wound pain.
Vital Signs / Physical Exam
Vital Signs
Vital Signs
Temp Pulse Resp BP Pulse Ox
98.6 F 84 18 122/67 98
09/17/23 07:00 09/17/23 07:00 09/17/23 07:00 09/17/23 08:13 09/17/23 08:53
Physical Exam
Constitutional: No Acute Distress
Pulmonary: Clear
Gastrointestinal: Soft, Non Tender and Non Distended
Extremities: Edema (BLE improved) and Erythema (Left foot/leg erythema not as bright red)
Skin: Dry (feet and ankles.)
Wound: Other (LLE lateral wound yellowish exudate. LLE medial wound smaller yellow-fibrin. )
Neurological: AO x 3
Objective Data
Lab Data
Lab Results
09/17/23 08:47
09/17/23 08:47
Estimated Creat Clear 72 ml/min 09/17/23 08:47
Lactic Acid Cancelled 09/15/23 17:30
Total Bilirubin 0.6 mg/dl (0.2-1.3) 09/15/23 13:38
AST 32 U/L (14-36) 09/15/23 13:38
ALT 25 U/L (0-35) 09/15/23 13:38
Alkaline Phosphatase 71 U/L (38-126) 09/15/23 13:38
Most recent labs reviewed.
Micro Results:
09/15/23 13:38 Blood Culture - Preliminary
Blood/Venous No Growth in 24 hours- Final report to follow
09/15/23 13:38 Blood Culture - Preliminary
Blood/Venous No Growth in 24 hours- Final report to follow
09/15/23 17:28 Urine Culture - Final
Urine
[2023-09-17] MEDS: LASIX 20 MG PO (11:38)
[2023-09-17] MEDS: DILAUDID 0.5 MG IV ×2 (11:39→20:45)
[2023-09-17] MEDS: LAC HYDRIN, AM LACTIN LOTION 1 APPLIC TOPICAL ×2 (12:19→21:29)
--- NOTE | 2023-09-17 12:40 | WOUNDNOTE ---
[employer] RN NOTE: Wound care performed with RNElicia. Patient medicated for pain 1 hour prior to wound care. Patient reports tenderness, burning and stinging during care of wounds. Breaks were given to patient as needed to help manage pain. Wound care
completed and compression applied as ordered. Will continue to follow as needed.
[2023-09-17 12:44] VITALS: BP 155/83
[2023-09-17 15:28] VITALS: BP 131/56
[2023-09-17] MEDS: LOVENOX 40 MG SC (17:06)
[2023-09-17] MEDS: NEURONTIN 600 MG PO (21:27)
[2023-09-17 23:32] VITALS: BP 131/60
[2023-09-18] MEDS: MAXIPIME 2000 MG IV ×3 (03:51→20:02)
[2023-09-18] MEDS: STERILE WATER FOR INJECTION 10 ML IV ×3 (03:52→20:02)
[2023-09-18] MEDS: REQUIP 0.5 MG PO ×4 (05:49→23:02)
[2023-09-18 07:44] LABS: % Basophils 0.2 % (0-2); % Immature Granulocytes 0.2 % (0-0.5); % Lymphocytes 15.3 % (20.5-51.1); % Neutrophils 74.3 % (42.2-75.2); Absolute Eosinophils 0.1 10^3/uL (0-0.7); Absolute Lymphocytes 1.3 10^3/uL (1.2-3.4); Absolute Monocytes 0.8 10^3/uL (0.1-0.6); Absolute Neutrophils 6.2 10^3/uL (1.4-6.5); Hematocrit 33.4 % (37.0-47.0); Hemoglobin 10.9 g/dL (12.0-16.0); Mean Corp Hgb Conc. 32.6 g/dL (33.0-37.0); Mean Corpuscular Hgb 28.8 pg (27.0-31.0); Mean Corpuscular Volume 88.4 fL (81.0-99.0); Nucleated Red Blood Cells % 0 %; Platelet Count 263 10^3/uL (130-400); Red Blood Cell Count 3.78 10^6/uL (4.20-5.40); Red Cell Dist. Width 14.6 % (11.5-14.5); White Blood Cell Count 8.4 10^3/uL (4.8-10.8)
[2023-09-18 08:02] VITALS: BP 91/66
[2023-09-18 08:27] LABS: Blood Urea Nitrogen 19 mg/dl (7-17); Calcium 8.4 mg/dl (8.4-10.2); Carbon Dioxide 28 mmol/L (22-30); Chloride 97 mmol/L (98-107); Estimated Creatinine Clearance 72 ml/min; Glucose 128 mg/dl (70-99); Potassium 4.4 mmol/L (3.5-5.1); Sodium 128 mmol/L (135-145); eGFR > 60.00
[2023-09-18] MEDS: ZESTRIL 20 MG PO (08:44)
[2023-09-18] MEDS: LASIX 20 MG PO (08:49)
[2023-09-18] MEDS: NEURONTIN 300 MG PO ×2 (08:49→13:14)
[2023-09-18] MEDS: LAC HYDRIN, AM LACTIN LOTION 1 APPLIC TOPICAL ×2 (08:50→20:05)
[2023-09-18] MEDS: DAKIN'S SOLUTION 0.125% 1/4 STRENGTH 473 ML TOPICAL (08:51)
[2023-09-18] MEDS: DILAUDID 0.5 MG IV (08:53)
--- NOTE | 2023-09-18 11:14 | W.PN.HOSP.TC ---
Today's Communication/Plan
-
Monitor vital signs and see plan
Add Flexeril
Pain control
Continue with antibiotics
Check urine and serum studies for hyponatremia
PT/OT
Updated son at bedside
Assessment / Plan
Assessment / Plan
General:�Comfortable and Conversant
HEENT:�Anicteric and Moist mucous membranes
Respiratory:�Clear and Non Labored Respirations
Cardiac:�S1/S2 and Regular Rhythm
GI:�Soft and Non Tender
Musculoskeletal: Other (+3 edema bilateral lower ext)
Skin:�Warm and Other b/l amando wrap LE; less erythematous
Neuro:�Awake, Alert
Psych:�Calm
Left Lower Extremity Cellulitis, secondary to infected chronic venous insufficiency wounds
-wound care
-ID following
cw abx per ID
venous doppler neg for DVT
Dilaudid as needed for wound change. Added Flexeril for muscle spasms
she has an appointment in october for laser surgery for her venous insufficiency
Acute Kidney Injury
resolved
-hold HCTZ; cw lisinopril, restart Lasix
-UA noted; denies dysuria
-Check bladder scans
Mild hyponatremia
Monitor; check urine and serum studies
Essential Hypertension
Continue with lisinopril, cw Lasix
hold HCTZ for now
Stage II pressure injury of sacrum on admission
Restless Leg Syndrome
-Continue Ropinirole
Lumbar Radiculopathy
-Decreased gabapentin dose 300mg BID with 600mg at Bedtime
DVT proph: SC Heparin
Code Status: DNR
I spent a total of 52 minutes with the patient or on the floor. More than 50% of this time involved counseling and coordination of care.
Anticipated Discharge: 24 - 48 hours
Subjective/Interval History
-
Date of Service: September 18, 2023
Still has muscle spasm
Objective Data
-
Labs:
Laboratory Results
09/18/23
07:04
WBC 8.4
Hgb 10.9 L
Hct 33.4 L
Plt Count 263
Sodium 128 L
Potassium 4.4
Chloride 97 L
Carbon Dioxide 28
BUN 19 H
Creatinine 0.5 L
Glucose 128 H
Calcium 8.4
Vital Signs:
Vital Signs
Temp Pulse Resp BP Pulse Ox
98.3 F 84 18 122/48 96
09/18/23 08:02 09/18/23 08:49 09/18/23 08:02 09/18/23 08:49 09/18/23 09:32
I&O
09/17/23 09/18/23 09/19/23
06:59 06:59 06:59
Intake Total 2400 / 2400 1080 / 1080
Output Total 1850 / 1850 700 / 700
Balance 550 / 550 380 / 380
[2023-09-18] MEDS: FLEXERIL 5 MG PO ×2 (11:55→20:02)
--- NOTE | 2023-09-18 12:51 | W.PN.ID1 ---
Date of Service
Date of Service: September 18, 2023
Today's Communication
Continue IV abx through the weekend.
Assessment / Plan
# LLE cellulitis with infected venous stasis wound
- Cellulitis improving
- Continue cefepime (d4) through the weekend, at least.
- Continue moisturize dry skin with Lac-hydrin bid.
- Continue wound care
-Continue compression with RASHEED-WRAP
# ANGEL LUIS resolved
#Additional Past Medical History:
Hypertension
Hyperlipidemia
Restless Leg Syndrome
Lumbar Radiculopathy
Chronic Venous Insufficiency
Osteoporosis
Left Hip Surgery
Hysterectomy
Varicose Vein Stripping
Hernia Repair
Chief Complaint
-: Cellulitis
Subjective / Review of Systems
Significant wound pain during dressing changes.
Vital Signs / Physical Exam
Vital Signs
Vital Signs
Temp Pulse Resp BP Pulse Ox
98.3 F 84 18 122/48 96
09/18/23 08:02 09/18/23 08:49 09/18/23 08:02 09/18/23 08:49 09/18/23 09:32
Physical Exam
Extremities: Edema (BLE improved)
Wound: Other (Examined during dressing change: LLE erythema significantly decreased; large stasis wound with yellow slough)
Objective Data
Lab Data
Lab Results
09/18/23 07:04
09/18/23 07:04
Estimated Creat Clear 72 ml/min 09/18/23 07:04
Lactic Acid Cancelled 09/15/23 17:30
Total Bilirubin 0.6 mg/dl (0.2-1.3) 09/15/23 13:38
AST 32 U/L (14-36) 09/15/23 13:38
ALT 25 U/L (0-35) 09/15/23 13:38
Alkaline Phosphatase 71 U/L (38-126) 09/15/23 13:38
Most recent labs reviewed.
Micro Results:
09/15/23 13:38 Blood Culture - Preliminary
Blood/Venous No Growth in 48 hours- Final report to follow
09/15/23 13:38 Blood Culture - Preliminary
Blood/Venous No Growth in 48 hours- Final report to follow
09/15/23 17:28 Urine Culture - Final
Urine
[2023-09-18 14:40] VITALS: BP 104/68
--- NOTE | 2023-09-18 14:46 | CM ---
Addendum entered by BLANCA Lopez 09/18/23 14:53:
Patient will need precert to transfer.
Original Note:
Reviewed PT/OT. Indication is for SNF. Made referrals to both facilities near [place] and [place] as discussed previously with patient. Faxed: [facility], [facility], [facility], [facility], [facility] [place], [place] [facility] and [facility].
Will await determinations and discuss with patient.
Plan: Case management will continue to follow and assist with discharge planning. SNF when stable.
[2023-09-18 15:15] LABS: Osmolality Serum 279 mOsm/kg (275-300)
[2023-09-18] MEDS: TYLENOL 650 MG PO (15:19)
[2023-09-18] MEDS: LOVENOX 40 MG SC (17:31)
[2023-09-18] MEDS: DAKIN'S SOLUTION 0.125% 1/4 STRENGTH 1 ML TOPICAL (20:04)
[2023-09-18] MEDS: NEURONTIN 600 MG PO (21:05)
[2023-09-18 23:23] VITALS: BP 117/53
[2023-09-19] MEDS: STERILE WATER FOR INJECTION 10 ML IV ×3 (03:14→20:27)
[2023-09-19] MEDS: MAXIPIME 2000 MG IV ×3 (03:14→20:27)
[2023-09-19] MEDS: TYLENOL 650 MG PO ×3 (03:19→20:38)
[2023-09-19 04:32] LABS: Osmolality Urine 280 mOsm/kg (300-900)
[2023-09-19 04:51] LABS: Urine Sodium 20 mmol/L (30-90)
[2023-09-19] MEDS: REQUIP 0.5 MG PO ×4 (05:57→23:37)
[2023-09-19 06:00] VITALS: BMI 34.9
[2023-09-19 07:30] VITALS: BP 125/55
[2023-09-19 08:15] LABS: % Basophils 0.4 % (0-2); % Eosinophils 2.3 % (0-6); % Immature Granulocytes 0.7 % (0-0.5); % Lymphocytes 18.4 % (20.5-51.1); % Neutrophils 69.2 % (42.2-75.2); Absolute Eosinophils 0.2 10^3/uL (0-0.7); Absolute Immature Granulocytes 0.1 10^3/uL (0-0.05); Absolute Lymphocytes 1.4 10^3/uL (1.2-3.4); Absolute Monocytes 0.7 10^3/uL (0.1-0.6); Absolute Neutrophils 5.1 10^3/uL (1.4-6.5); Hematocrit 34.9 % (37.0-47.0); Hemoglobin 11.4 g/dL (12.0-16.0); Mean Corp Hgb Conc. 32.7 g/dL (33.0-37.0); Mean Corpuscular Hgb 28.8 pg (27.0-31.0); Mean Corpuscular Volume 88.1 fL (81.0-99.0); Mean Platelet Volume 9.2 fL (7.4-10.4); Nucleated Red Blood Cells % 0 %; Platelet Count 287 10^3/uL (130-400); Red Blood Cell Count 3.96 10^6/uL (4.20-5.40); Red Cell Dist. Width 14.3 % (11.5-14.5); White Blood Cell Count 7.3 10^3/uL (4.8-10.8)
[2023-09-19 08:21] LABS: Blood Urea Nitrogen 23 mg/dl (7-17); Calcium 8.8 mg/dl (8.4-10.2); Carbon Dioxide 29 mmol/L (22-30); Chloride 91 mmol/L (98-107); Estimated Creatinine Clearance 73 ml/min; Glucose 131 mg/dl (70-99); Potassium 4.1 mmol/L (3.5-5.1); Sodium 126 mmol/L (135-145); eGFR > 60.00
[2023-09-19] MEDS: NEURONTIN 300 MG PO ×2 (09:29→13:06)
[2023-09-19] MEDS: LASIX 20 MG PO (09:29)
[2023-09-19] MEDS: ZESTRIL 20 MG PO (09:30)
[2023-09-19] MEDS: LAC HYDRIN, AM LACTIN LOTION 1 APPLIC TOPICAL ×2 (09:31→20:27)
[2023-09-19] MEDS: DAKIN'S SOLUTION 0.125% 1/4 STRENGTH 10 ML TOPICAL (09:32)
[2023-09-19] MEDS: FLEXERIL 5 MG PO ×2 (09:33→20:26)
--- NOTE | 2023-09-19 11:22 | W.PN.HOSP.TC ---
Today's Communication/Plan
-
Monitor vital signs and see plan
Continue with Flexeril, pain control
Hold HCTZ
Fluid restriction
Monitor sodium
Continue with antibiotics
PT/OT
Assessment / Plan
Assessment / Plan
General:�Comfortable and Conversant
HEENT:�Anicteric and Moist mucous membranes
Respiratory:�Clear and Non Labored Respirations
Cardiac:�S1/S2 and Regular Rhythm
GI:�Soft and Non Tender
Musculoskeletal: Other (+2 edema bilateral lower ext)
Skin:�Warm and Other b/l amando wrap LE; less erythematous
Neuro:�Awake, Alert
Psych:�Calm
Left Lower Extremity Cellulitis, secondary to infected chronic venous insufficiency wounds
-wound care
-ID following
cw abx per ID
venous doppler neg for DVT
Dilaudid as needed for wound change. Added Flexeril for muscle spasms
she has an appointment in october for laser surgery for her venous insufficiency
Acute Kidney Injury
resolved
-hold HCTZ; cw lisinopril, cw Lasix
-UA noted; denies dysuria
-Check bladder scans
hyponatremia
Monitor; urine and serum studies suggest increase free water intake; fluid restrict and monitor; if still dont improve then nephro eval
Essential Hypertension
Continue with lisinopril, cw Lasix
hold HCTZ for now
Stage II pressure injury of sacrum on admission
Restless Leg Syndrome
-Continue Ropinirole
Lumbar Radiculopathy
-Decreased gabapentin dose 300mg BID with 600mg at Bedtime
DVT proph: SC Heparin
Code Status: DNR
Anticipated Discharge: > 48 hours
Subjective/Interval History
-
Date of Service: September 19, 2023
pain is getting better
Objective Data
-
Labs:
Laboratory Results
09/19/23
07:47
WBC 7.3
Hgb 11.4 L
Hct 34.9 L
Plt Count 287
Sodium 126 L
Potassium 4.1
Chloride 91 L
Carbon Dioxide 29
BUN 23 H
Creatinine 0.6
Glucose 131 H
Calcium 8.8
Vital Signs:
Vital Signs
Temp Pulse Resp BP Pulse Ox
98.0 F 72 22 125/55 96
09/19/23 07:30 09/19/23 09:29 09/19/23 07:30 09/19/23 09:29 09/19/23 07:30
I&O
09/18/23 09/19/23 09/20/23
06:59 06:59 06:59
Intake Total 1080 / 1080 1800 / 1800
Output Total 700 / 700 350 / 350
Balance 380 / 380 1450 / 1450
[2023-09-19 15:35] VITALS: BP 147/67
[2023-09-19] MEDS: LOVENOX 40 MG SC (18:03)
[2023-09-19] MEDS: DAKIN'S SOLUTION 0.125% 1/4 STRENGTH 1 ML TOPICAL (20:24)
[2023-09-19] MEDS: NEURONTIN 600 MG PO (22:03)
[2023-09-19] MEDS: ULTRAM 25 MG PO (22:31)
[2023-09-19] MEDS: DILAUDID 0.5 MG IV (23:42)
[2023-09-19 23:51] VITALS: BP 108/48
[2023-09-20] MEDS: MAXIPIME 2000 MG IV ×3 (03:11→20:52)
[2023-09-20] MEDS: STERILE WATER FOR INJECTION 10 ML IV ×3 (03:11→20:52)
[2023-09-20 06:00] VITALS: BMI 34.9
[2023-09-20] MEDS: REQUIP 0.5 MG PO ×4 (06:03→23:13)
[2023-09-20 07:27] LABS: % Basophils 0.3 % (0-2); % Eosinophils 4.2 % (0-6); % Immature Granulocytes 0.7 % (0-0.5); % Lymphocytes 14.6 % (20.5-51.1); % Monocytes 9.3 % (1.7-9.3); % Neutrophils 70.9 % (42.2-75.2); Absolute Eosinophils 0.3 10^3/uL (0-0.7); Absolute Immature Granulocytes 0.1 10^3/uL (0-0.05); Absolute Monocytes 0.7 10^3/uL (0.1-0.6); Hematocrit 33.8 % (37.0-47.0); Hemoglobin 10.8 g/dL (12.0-16.0); Mean Corpuscular Hgb 28.5 pg (27.0-31.0); Mean Corpuscular Volume 89.2 fL (81.0-99.0); Mean Platelet Volume 9.3 fL (7.4-10.4); Nucleated Red Blood Cells % 0 %; Platelet Count 313 10^3/uL (130-400); Red Blood Cell Count 3.79 10^6/uL (4.20-5.40); Red Cell Dist. Width 14.5 % (11.5-14.5); White Blood Cell Count 7.1 10^3/uL (4.8-10.8)
[2023-09-20 07:30] VITALS: BP 122/58
[2023-09-20 07:55] LABS: Blood Urea Nitrogen 28 mg/dl (7-17); Calcium 8.7 mg/dl (8.4-10.2); Carbon Dioxide 28 mmol/L (22-30); Chloride 96 mmol/L (98-107); Estimated Creatinine Clearance 62 ml/min; Glucose 100 mg/dl (70-99); Potassium 4.5 mmol/L (3.5-5.1); Sodium 128 mmol/L (135-145); eGFR > 60.00
[2023-09-20] MEDS: NEURONTIN 300 MG PO ×2 (08:54→14:50)
[2023-09-20] MEDS: FLEXERIL 5 MG PO ×2 (08:55→20:48)
[2023-09-20] MEDS: ZESTRIL 20 MG PO (08:55)
[2023-09-20] MEDS: LASIX 20 MG PO (08:55)
[2023-09-20] MEDS: LAC HYDRIN, AM LACTIN LOTION 1 APPLIC TOPICAL ×2 (08:55→20:52)
[2023-09-20] MEDS: DAKIN'S SOLUTION 0.125% 1/4 STRENGTH 1 ML TOPICAL (08:56)
[2023-09-20] MEDS: TYLENOL 650 MG PO (09:18)
--- NOTE | 2023-09-20 11:21 | W.PN.HOSP.TC ---
Today's Communication/Plan
-
Monitor vital signs and see plan
Monitor sodium, continue with fluid restriction
Add oxycodone
Continue with antibiotics
Assessment / Plan
Assessment / Plan
General:�Comfortable and Conversant
HEENT:�Anicteric and Moist mucous membranes
Respiratory:�Clear and Non Labored Respirations
Cardiac:�S1/S2 and Regular Rhythm
GI:�Soft and Non Tender
Musculoskeletal: Other (+2 edema bilateral lower ext)
Skin:�Warm and Other b/l amando wrap LE; less erythematous
Neuro:�Awake, Alert
Psych:�Calm
Left Lower Extremity Cellulitis, secondary to infected chronic venous insufficiency wounds
-wound care
-ID following
cw abx per ID
venous doppler neg for DVT
Dilaudid as needed for wound change. Added Flexeril for muscle spasms. Add oxycodone as needed for pain
she has an appointment in october for laser surgery for her venous insufficiency
Acute Kidney Injury
resolved
-hold HCTZ; cw lisinopril, cw Lasix
-UA noted; denies dysuria
-Check bladder scans
hyponatremia
Monitor; urine and serum studies suggest increase free water intake; fluid restrict and monitor; if still dont improve then nephro eval
Essential Hypertension
Continue with lisinopril, cw Lasix
hold HCTZ for now
Stage II pressure injury of sacrum on admission
Restless Leg Syndrome
-Continue Ropinirole
Lumbar Radiculopathy
-Decreased gabapentin dose 300mg BID with 600mg at Bedtime
DVT proph: SC Heparin
Code Status: DNR
Anticipated Discharge: 24 - 48 hours
Subjective/Interval History
-
Date of Service: September 20, 2023
Does have some pain however improving
Objective Data
-
Labs:
Laboratory Results
09/20/23
06:51
WBC 7.1
Hgb 10.8 L
Hct 33.8 L
Plt Count 313
Sodium 128 L
Potassium 4.5
Chloride 96 L
Carbon Dioxide 28
BUN 28 H
Creatinine 0.7
Glucose 100 H
Calcium 8.7
Vital Signs:
Vital Signs
Temp Pulse Resp BP Pulse Ox
98.3 F 78 18 122/58 99
09/20/23 07:30 09/20/23 07:30 09/20/23 07:30 09/20/23 07:30 09/20/23 07:30
I&O
09/19/23 09/20/23 09/21/23
06:59 06:59 06:59
Intake Total 1800 / 1800 960 / 960
Output Total 350 / 350 2750 / 2750
Balance 1450 / 1450 -1790 / -1790
[2023-09-20] MEDS: ROXICODONE 5 MG PO ×3 (11:55→23:16)
[2023-09-20 15:50] VITALS: BP 133/59
[2023-09-20] MEDS: LOVENOX 40 MG SC (17:53)
[2023-09-20] MEDS: DAKIN'S SOLUTION 0.125% 1/4 STRENGTH 473 ML TOPICAL (20:48)
[2023-09-20] MEDS: NEURONTIN 600 MG PO (21:05)
[2023-09-20 23:05] VITALS: BP 109/56
[2023-09-21] MEDS: DILAUDID 0.5 MG IV ×2 (04:09→16:45)
[2023-09-21] MEDS: MAXIPIME 2000 MG IV ×3 (04:09→20:36)
[2023-09-21] MEDS: STERILE WATER FOR INJECTION 10 ML IV ×3 (04:09→20:36)
[2023-09-21 04:48] VITALS: BMI 35.2
[2023-09-21] MEDS: REQUIP 0.5 MG PO ×4 (05:10→23:20)
[2023-09-21 07:00] VITALS: BP 133/46
[2023-09-21 07:40] LABS: % Basophils 0.3 % (0-2); % Eosinophils 2.9 % (0-6); % Immature Granulocytes 0.9 % (0-0.5); % Lymphocytes 14.7 % (20.5-51.1); % Monocytes 10.1 % (1.7-9.3); % Neutrophils 71.1 % (42.2-75.2); Absolute Eosinophils 0.2 10^3/uL (0-0.7); Absolute Immature Granulocytes 0.1 10^3/uL (0-0.05); Absolute Lymphocytes 1.2 10^3/uL (1.2-3.4); Absolute Monocytes 0.8 10^3/uL (0.1-0.6); Absolute Neutrophils 5.7 10^3/uL (1.4-6.5); Hematocrit 32.3 % (37.0-47.0); Mean Corp Hgb Conc. 34.1 g/dL (33.0-37.0); Mean Corpuscular Volume 85.2 fL (81.0-99.0); Mean Platelet Volume 9.2 fL (7.4-10.4); Nucleated Red Blood Cells % 0 %; Platelet Count 357 10^3/uL (130-400); Red Blood Cell Count 3.79 10^6/uL (4.20-5.40); Red Cell Dist. Width 14.5 % (11.5-14.5)
[2023-09-21 08:05] LABS: Blood Urea Nitrogen 34 mg/dl (7-17); Calcium 8.7 mg/dl (8.4-10.2); Carbon Dioxide 26 mmol/L (22-30); Chloride 96 mmol/L (98-107); Estimated Creatinine Clearance 55 ml/min; Glucose 106 mg/dl (70-99); Potassium 5.2 mmol/L (3.5-5.1); Sodium 128 mmol/L (135-145); eGFR > 60.00
[2023-09-21] MEDS: NEURONTIN 300 MG PO ×2 (09:52→13:55)
[2023-09-21] MEDS: LASIX 20 MG PO (09:53)
[2023-09-21] MEDS: FLEXERIL 5 MG PO ×3 (09:53→21:53)
[2023-09-21] MEDS: ZESTRIL 20 MG PO (09:53)
[2023-09-21] MEDS: DAKIN'S SOLUTION 0.125% 1/4 STRENGTH 10 ML TOPICAL (10:04)
[2023-09-21] MEDS: LAC HYDRIN, AM LACTIN LOTION 1 APPLIC TOPICAL ×2 (10:05→20:36)
--- NOTE | 2023-09-21 11:42 | W.PN.HOSP.TC ---
Today's Communication/Plan
-
Monitor vital signs see plan
PT/OT
Continue antibiotics
Wound care
Monitor sodium and potassium
Discussed with daughter at bedside in detail
Assessment / Plan
Assessment / Plan
General:�Comfortable and Conversant
HEENT:�Anicteric and Moist mucous membranes
Respiratory:�Clear and Non Labored Respirations
Cardiac:�S1/S2 and Regular Rhythm
GI:�Soft and Non Tender
Musculoskeletal: Other (+2 edema bilateral lower ext)
Skin:�Warm and Other b/l amando wrap LE; less erythematous
Neuro:�Awake, Alert
Psych:�Calm
Left Lower Extremity Cellulitis, secondary to infected chronic venous insufficiency wounds
-wound care
-ID following
cw abx per ID
venous doppler neg for DVT
Dilaudid as needed for wound change. Added Flexeril for muscle spasms. Add oxycodone as needed for pain
she has an appointment in october for laser surgery for her venous insufficiency
Acute Kidney Injury
resolved
-hold HCTZ; cw lisinopril, cw Lasix
-UA noted; denies dysuria
-Check bladder scans
hyponatremia
Na 128
Monitor; urine and serum studies suggest increase free water intake; fluid restrict and monitor; if still dont improve then nephro eval
Hyperlipidemia
monitor
Essential Hypertension
Continue with lisinopril, cw Lasix
hold HCTZ for now
Stage II pressure injury of sacrum on admission
Restless Leg Syndrome
-Continue Ropinirole
Lumbar Radiculopathy
-Decreased gabapentin dose 300mg BID with 600mg at Bedtime
DVT proph: SC Heparin
Code Status: DNR
I spent a total of 52 minutes with the patient or on the floor. More than 50% of this time involved counseling and coordination of care.
Anticipated Discharge: 24 - 48 hours
Subjective/Interval History
-
Date of Service: September 21, 2023
have some cramping
Objective Data
-
Labs:
Laboratory Results
09/21/23
07:08
WBC 8.0
Hgb 11.0 L
Hct 32.3 L
Plt Count 357
Sodium 128 L
Potassium 5.2 H
Chloride 96 L
Carbon Dioxide 26
BUN 34 H
Creatinine 0.8
Glucose 106 H
Calcium 8.7
Vital Signs:
Vital Signs
Temp Pulse Resp BP Pulse Ox
98.5 F 69 19 133/46 98
09/21/23 07:00 09/21/23 09:53 09/21/23 07:00 09/21/23 09:53 09/21/23 07:00
I&O
09/20/23 09/21/23 09/22/23
06:59 06:59 06:59
Intake Total 960 / 960 920 / 920
Output Total 2750 / 2750 450 / 450
Balance -1790 / -1790 470 / 470
[2023-09-21 12:15] VITALS: BP 122/54; PULSE 87; O2SAT 97
[2023-09-21 12:17] VITALS: BP 122/54; PULSE 91; O2SAT 98
--- NOTE | 2023-09-21 13:21 | CM ---
Addendum entered by BLANCA Lopez 09/21/23 15:53:
Placed a call to [facility] and left message in admissions advising that patient/family interested in their facility and requested determination regarding bed availability. Will await return call.
Original Note:
Reviewed chart, facilities that can take patient that are close: [facility], and [facility]. Patient's daughter stated that she selects [place]. Will call them to confirm bed availability.
Plan: Case management will continue to follow and assist with discharge planning. [facility].
--- NOTE | 2023-09-21 15:09 | W.PN.ID1 ---
Date of Service
Date of Service: September 21, 2023
Today's Communication
- Continue cefepime (7)
- At time of discharge, transition to levofloxacin 750mg po qd trough 09/26/23
Assessment / Plan
# LLE cellulitis with venous stasis wound
- Cellulitis improving
- Continue cefepime (7)
At time of discharge, transition to levofloxacin 750mg po qd trough 09/26/23
- Continue moisturize dry skin with Lac-hydrin bid.
- Continue wound care
-Continue compression with RASHEED-WRAP
# ANGEL LUIS resolved
#Additional Past Medical History:
Hypertension
Hyperlipidemia
Restless Leg Syndrome
Lumbar Radiculopathy
Chronic Venous Insufficiency
Osteoporosis
Left Hip Surgery
Hysterectomy
Varicose Vein Stripping
Hernia Repair
Chief Complaint
-: Cellulitis
Subjective / Review of Systems
No new issues.
Vital Signs / Physical Exam
Vital Signs
Vital Signs
Temp Pulse Resp BP Pulse Ox
98.5 F 69 19 133/46 98
09/21/23 07:00 09/21/23 09:53 09/21/23 07:00 09/21/23 09:53 09/21/23 07:00
Physical Exam
Constitutional: No Acute Distress
Gastrointestinal: Soft, Non Tender and Non Distended
Objective Data
Lab Data
Lab Results
09/21/23 07:08
09/21/23 07:08
Estimated Creat Clear 55 ml/min 09/21/23 07:08
Lactic Acid Cancelled 09/15/23 17:30
Total Bilirubin 0.6 mg/dl (0.2-1.3) 09/15/23 13:38
AST 32 U/L (14-36) 09/15/23 13:38
ALT 25 U/L (0-35) 09/15/23 13:38
Alkaline Phosphatase 71 U/L (38-126) 09/15/23 13:38
Most recent labs reviewed.
Micro Results:
09/15/23 13:38 Blood Culture - Final
Blood/Venous No Growth - Final Report
09/15/23 13:38 Blood Culture - Final
Blood/Venous No Growth - Final Report
09/15/23 17:28 Urine Culture - Final
Urine
Care Review
Plan reviewed with: Physician (Dr. Mcpherson)
[2023-09-21 15:55] VITALS: BP 146/55
[2023-09-21] MEDS: LOVENOX 40 MG SC (17:11)
[2023-09-21] MEDS: DAKIN'S SOLUTION 0.125% 1/4 STRENGTH 473 ML TOPICAL (20:35)
[2023-09-21] MEDS: NEURONTIN 600 MG PO (21:52)
[2023-09-21] MEDS: TYLENOL 650 MG PO (22:19)
[2023-09-22] MEDS: ROXICODONE 5 MG PO ×2 (00:08→15:39)
[2023-09-22 00:22] VITALS: BP 130/56
[2023-09-22] MEDS: MAXIPIME 2000 MG IV ×3 (04:15→20:21)
[2023-09-22] MEDS: STERILE WATER FOR INJECTION 10 ML IV ×3 (04:15→20:21)
[2023-09-22] MEDS: REQUIP 0.5 MG PO ×3 (05:53→17:29)
[2023-09-22 06:24] LABS: % Basophils 0.5 % (0-2); % Eosinophils 3.1 % (0-6); % Immature Granulocytes 0.9 % (0-0.5); % Lymphocytes 15.5 % (20.5-51.1); % Monocytes 8.9 % (1.7-9.3); % Neutrophils 71.1 % (42.2-75.2); Absolute Eosinophils 0.3 10^3/uL (0-0.7); Absolute Immature Granulocytes 0.1 10^3/uL (0-0.05); Absolute Lymphocytes 1.3 10^3/uL (1.2-3.4); Absolute Monocytes 0.7 10^3/uL (0.1-0.6); Absolute Neutrophils 5.7 10^3/uL (1.4-6.5); Hematocrit 33.7 % (37.0-47.0); Hemoglobin 10.8 g/dL (12.0-16.0); Mean Corpuscular Hgb 28.5 pg (27.0-31.0); Mean Corpuscular Volume 88.9 fL (81.0-99.0); Mean Platelet Volume 8.9 fL (7.4-10.4); Nucleated Red Blood Cells % 0 %; Platelet Count 331 10^3/uL (130-400); Red Blood Cell Count 3.79 10^6/uL (4.20-5.40); Red Cell Dist. Width 14.4 % (11.5-14.5); White Blood Cell Count 8.1 10^3/uL (4.8-10.8)
[2023-09-22 06:46] LABS: Blood Urea Nitrogen 34 mg/dl (7-17); Calcium 8.9 mg/dl (8.4-10.2); Carbon Dioxide 28 mmol/L (22-30); Chloride 98 mmol/L (98-107); Estimated Creatinine Clearance 63 ml/min; Glucose 104 mg/dl (70-99); Potassium 4.6 mmol/L (3.5-5.1); Sodium 130 mmol/L (135-145); eGFR > 60.00
[2023-09-22 07:30] VITALS: BP 130/54
[2023-09-22] MEDS: FLEXERIL 5 MG PO ×3 (07:54→21:36)
[2023-09-22] MEDS: ZESTRIL 20 MG PO (07:54)
[2023-09-22] MEDS: LASIX 20 MG PO (07:54)
[2023-09-22] MEDS: NEURONTIN 300 MG PO ×2 (07:54→13:25)
--- NOTE | 2023-09-22 10:31 | CM ---
Addendum entered by Paula Griffin 09/22/23 16:07:
Patient seen bedside, discussed [facility] can offer a bed. CM left VM for patients daughter, Maria A ([phone]) with update.
Original Note:
Per Hospitalist, patient likely clear for discharge tomorrow. CM spoke with Anne, liaison for [facility], has a bed available and can start auth. CM sent updated PT, OT, and clinicals through [facility], Anne will initiate auth. CM will
continue to follow for discharge planning needs.
Plan; [facility], pending auth status.
--- NOTE | 2023-09-22 10:49 | W.PN.HOSP.TC ---
Today's Communication/Plan
-
Monitor vital signs see plan
Continue with antibiotic
PT/OT
Eventual SNF
Pain control
Assessment / Plan
Assessment / Plan
General:�Comfortable and Conversant
HEENT:�Anicteric and Moist mucous membranes
Respiratory:�Clear and Non Labored Respirations
Cardiac:�S1/S2 and Regular Rhythm
GI:�Soft and Non Tender
Musculoskeletal: Other (+2 edema bilateral lower ext)
Skin:�Warm and Other b/l amando wrap LE; less erythematous
Neuro:�Awake, Alert
Psych:�Calm
Left Lower Extremity Cellulitis, secondary to infected chronic venous insufficiency wounds
-wound care
-ID following
cw abx per ID
venous doppler neg for DVT
Dilaudid as needed for wound change. Added Flexeril for muscle spasms. Added oxycodone as needed for pain
she has an appointment in october for laser surgery for her venous insufficiency
Acute Kidney Injury
resolved
-hold HCTZ; cw lisinopril, cw Lasix
-UA noted; denies dysuria
-Check bladder scans
hyponatremia
Na 130
Monitor; urine and serum studies suggest increase free water intake; fluid restrict and monitor; if still dont improve then nephro eval
Hyperlipidemia
monitor
Essential Hypertension
Continue with lisinopril, cw Lasix
hold HCTZ for now
Stage II pressure injury of sacrum on admission
Restless Leg Syndrome
-Continue Ropinirole
Lumbar Radiculopathy
-Decreased gabapentin dose 300mg BID with 600mg at Bedtime
DVT proph: SC Heparin
Code Status: DNR
Anticipated Discharge: Within 24 hours
Subjective/Interval History
-
Date of Service: September 22, 2023
Does have pain at times however improving
Objective Data
-
Labs:
Laboratory Results
09/22/23
05:55
WBC 8.1
Hgb 10.8 L
Hct 33.7 L
Plt Count 331
Sodium 130 L
Potassium 4.6
Chloride 98
Carbon Dioxide 28
BUN 34 H
Creatinine 0.7
Glucose 104 H
Calcium 8.9
Vital Signs:
Vital Signs
Temp Pulse Resp BP Pulse Ox
97.6 F 83 19 130/54 98
09/22/23 07:30 09/22/23 07:54 09/22/23 07:30 09/22/23 07:54 09/22/23 07:30
I&O
09/21/23 09/22/23 09/23/23
06:59 06:59 06:59
Intake Total 920 / 920 1380 / 1380
Output Total 450 / 450 2610 / 2610
Balance 470 / 470 -1230 / -1230
[2023-09-22] MEDS: DILAUDID 0.5 MG IV (10:55)
[2023-09-22] MEDS: LAC HYDRIN, AM LACTIN LOTION 1 APPLIC TOPICAL ×2 (11:17→20:22)
[2023-09-22] MEDS: DAKIN'S SOLUTION 0.125% 1/4 STRENGTH 473 ML TOPICAL ×2 (11:17→20:22)
--- NOTE | 2023-09-22 11:29 | W.PN.ID1 ---
Date of Service
Date of Service: September 22, 2023
Today's Communication
Continue cefepime (8)
At time of discharge, transition to levofloxacin 750mg po qd through 09/26/23
Assessment / Plan
# LLE cellulitis with venous stasis wound
- Cellulitis improving
- Continue cefepime (8)
At time of discharge, transition to levofloxacin 750mg po qd through 09/26/23
- Continue moisturize dry skin with Lac-hydrin bid.
- Continue wound care
-Continue compression with RASHEED-WRAP
# ANGEL LUIS resolved
#Additional Past Medical History:
Hypertension
Hyperlipidemia
Restless Leg Syndrome
Lumbar Radiculopathy
Chronic Venous Insufficiency
Osteoporosis
Left Hip Surgery
Hysterectomy
Varicose Vein Stripping
Hernia Repair
Chief Complaint
-: Cellulitis
Subjective / Review of Systems
Still with leg cramps.
Vital Signs / Physical Exam
Vital Signs
Vital Signs
Temp Pulse Resp BP Pulse Ox
97.6 F 83 19 130/54 98
09/22/23 07:30 09/22/23 07:54 09/22/23 07:30 09/22/23 07:54 09/22/23 07:30
Physical Exam
Constitutional: No Acute Distress and Comfortable
Pulmonary: Clear
Gastrointestinal: Soft, Non Tender and Non Distended
Neurological: AO x 3
Objective Data
Lab Data
Lab Results
09/22/23 05:55
09/22/23 05:55
Estimated Creat Clear 63 ml/min 09/22/23 05:55
Lactic Acid Cancelled 09/15/23 17:30
Total Bilirubin 0.6 mg/dl (0.2-1.3) 09/15/23 13:38
AST 32 U/L (14-36) 09/15/23 13:38
ALT 25 U/L (0-35) 09/15/23 13:38
Alkaline Phosphatase 71 U/L (38-126) 09/15/23 13:38
Most recent labs reviewed.
Micro Results:
09/15/23 13:38 Blood Culture - Final
Blood/Venous No Growth - Final Report
09/15/23 13:38 Blood Culture - Final
Blood/Venous No Growth - Final Report
09/15/23 17:28 Urine Culture - Final
Urine
[2023-09-22 15:26] VITALS: BP 123/52
[2023-09-22] MEDS: LOVENOX 40 MG SC (17:29)
[2023-09-22] MEDS: NEURONTIN 600 MG PO (21:36)
[2023-09-22 23:09] VITALS: BP 118/52
[2023-09-23] MEDS: REQUIP 0.5 MG PO ×4 (00:41→18:15)
[2023-09-23] MEDS: ROXICODONE 5 MG PO (01:34)
[2023-09-23] MEDS: STERILE WATER FOR INJECTION 10 ML IV ×3 (03:45→19:20)
[2023-09-23] MEDS: MAXIPIME 2000 MG IV ×3 (03:45→19:20)
[2023-09-23] MEDS: DILAUDID 0.5 MG IV (03:46)
[2023-09-23 05:21] VITALS: BMI 35.2
[2023-09-23 06:16] LABS: % Basophils 0.4 % (0-2); % Eosinophils 3.9 % (0-6); % Immature Granulocytes 0.6 % (0-0.5); % Lymphocytes 12.5 % (20.5-51.1); % Monocytes 8.4 % (1.7-9.3); % Neutrophils 74.2 % (42.2-75.2); Absolute Eosinophils 0.3 10^3/uL (0-0.7); Absolute Immature Granulocytes 0.1 10^3/uL (0-0.05); Absolute Monocytes 0.7 10^3/uL (0.1-0.6); Absolute Neutrophils 5.7 10^3/uL (1.4-6.5); Hematocrit 33.4 % (37.0-47.0); Hemoglobin 10.6 g/dL (12.0-16.0); Mean Corp Hgb Conc. 31.7 g/dL (33.0-37.0); Mean Corpuscular Hgb 28.3 pg (27.0-31.0); Mean Corpuscular Volume 89.1 fL (81.0-99.0); Mean Platelet Volume 8.8 fL (7.4-10.4); Nucleated Red Blood Cells % 0 %; Platelet Count 356 10^3/uL (130-400); Red Blood Cell Count 3.75 10^6/uL (4.20-5.40); Red Cell Dist. Width 14.5 % (11.5-14.5); White Blood Cell Count 7.7 10^3/uL (4.8-10.8)
[2023-09-23 06:32] LABS: Blood Urea Nitrogen 33 mg/dl (7-17); Calcium 9.3 mg/dl (8.4-10.2); Carbon Dioxide 29 mmol/L (22-30); Chloride 94 mmol/L (98-107); Estimated Creatinine Clearance 55 ml/min; Glucose 106 mg/dl (70-99); Sodium 131 mmol/L (135-145); eGFR > 60.00
[2023-09-23 06:39] LABS: Potassium 5.2 mmol/L (3.5-5.1)
[2023-09-23 07:00] VITALS: BP 95/46
[2023-09-23] MEDS: FLEXERIL 5 MG PO ×3 (08:50→21:40)
[2023-09-23] MEDS: LASIX 20 MG PO (08:50)
[2023-09-23] MEDS: NEURONTIN 300 MG PO ×2 (08:50→14:25)
[2023-09-23] MEDS: ZESTRIL 20 MG PO (08:54)
[2023-09-23] MEDS: LAC HYDRIN, AM LACTIN LOTION 1 APPLIC TOPICAL ×2 (08:55→19:25)
[2023-09-23 09:49] VITALS: BP 143/54; BP 171/80; PULSE 90; O2SAT 100
[2023-09-23 09:51] VITALS: BP 143/54; PULSE 90; O2SAT 100
[2023-09-23] MEDS: DAKIN'S SOLUTION 0.125% 1/4 STRENGTH 473 ML TOPICAL ×2 (11:35→19:25)
--- NOTE | 2023-09-23 11:58 | W.PN.HOSP.TC ---
Today's Communication/Plan
-
Start dispo
trend bmp
IV abx
Assessment / Plan
Assessment / Plan
General:�Comfortable and Conversant
HEENT:�Anicteric and Moist mucous membranes
Respiratory:�Clear and Non Labored Respirations
Cardiac:�S1/S2 and Regular Rhythm
GI:�Soft and Non Tender
Musculoskeletal: Other (+2 edema bilateral lower ext)
Skin:�Warm and Other b/l amando wrap LE; less erythematous
Neuro:�Awake, Alert
Psych:�Calm
Left Lower Extremity Cellulitis, secondary to infected chronic venous insufficiency wounds
-wound care
-ID following
cw abx per ID
venous doppler neg for DVT
Dilaudid as needed for wound change. Added Flexeril for muscle spasms. Added oxycodone as needed for pain
she has an appointment in october for laser surgery for her venous insufficiency
Acute Kidney Injury
resolved
-hold HCTZ; cw lisinopril, cw Lasix
-UA noted; denies dysuria
-Check bladder scans
Mild hyperkalemia
-K 5.2 trend for now
hyponatremia
Na 131
Monitor; urine and serum studies suggest increase free water intake; fluid restrict and monitor; if still dont improve then nephro eval
Hyperlipidemia
monitor
Essential Hypertension
Continue with lisinopril, cw Lasix
hold HCTZ for now
Stage II pressure injury of sacrum on admission
Restless Leg Syndrome
-Continue Ropinirole
Lumbar Radiculopathy
-Decreased gabapentin dose 300mg BID with 600mg at Bedtime
DVT proph: SC Heparin
Code Status: DNR
PT/OT-SNF. Cm aware.
Anticipated Discharge: 24 - 48 hours
Subjective/Interval History
-
Date of Service: September 23, 2023
states of leg pain
about to work with PT
Objective Data
-
Labs:
Laboratory Results
09/23/23
05:54
WBC 7.7
Hgb 10.6 L
Hct 33.4 L
Plt Count 356
Sodium 131 L
Potassium 5.2 H
Chloride 94 L
Carbon Dioxide 29
BUN 33 H
Creatinine 0.8
Glucose 106 H
Calcium 9.3
Vital Signs:
Vital Signs
Temp Pulse Resp BP Pulse Ox
97.8 F 95 18 131/52 95
09/23/23 07:00 09/23/23 08:50 09/23/23 07:00 09/23/23 08:50 09/23/23 07:00
I&O
09/22/23 09/23/23 09/24/23
06:59 06:59 06:59
Intake Total 1380 / 1380 1440 / 1440
Output Total 2610 / 2610 2350 / 2350
Balance -1230 / -1230 -910 / -910
[2023-09-23] MEDS: TYLENOL 650 MG PO ×2 (12:07→21:40)
[2023-09-23 15:00] VITALS: BP 107/51
--- NOTE | 2023-09-23 16:42 | CM ---
met with patient at bedside.cont iv abx for lle cellulitis.spoke with daughter dillon to update her about pending auth.i have called sara with [facility] who is obtaining the auth [phone].auth still pending.patient signed imm
letter.
[2023-09-23] MEDS: LOVENOX 40 MG SC (18:15)
[2023-09-23] MEDS: NEURONTIN 600 MG PO (21:39)
[2023-09-23 23:59] VITALS: BP 95/56
[2023-09-24] MEDS: REQUIP 0.5 MG PO ×3 (00:08→11:18)
[2023-09-24] MEDS: ROXICODONE 5 MG PO (01:51)
[2023-09-24] MEDS: STERILE WATER FOR INJECTION 10 ML IV ×2 (03:49→11:18)
[2023-09-24] MEDS: MAXIPIME 2000 MG IV ×2 (03:49→11:18)
[2023-09-24 05:23] VITALS: BMI 35.4
[2023-09-24 07:00] VITALS: BP 152/65
[2023-09-24] MEDS: DAKIN'S SOLUTION 0.125% 1/4 STRENGTH 10 ML TOPICAL (08:26)
[2023-09-24] MEDS: FLEXERIL 5 MG PO (08:27)
[2023-09-24] MEDS: NEURONTIN 300 MG PO ×2 (08:27→13:28)
[2023-09-24] MEDS: LASIX 20 MG PO (08:28)
[2023-09-24] MEDS: TYLENOL 650 MG PO ×2 (08:28→13:28)
[2023-09-24] MEDS: ZESTRIL 20 MG PO (08:29)
[2023-09-24] MEDS: LAC HYDRIN, AM LACTIN LOTION 1 APPLIC TOPICAL (08:29)
[2023-09-24 09:44] LABS: Blood Urea Nitrogen 36 mg/dl (7-17); Calcium 9.1 mg/dl (8.4-10.2); Carbon Dioxide 29 mmol/L (22-30); Chloride 97 mmol/L (98-107); Estimated Creatinine Clearance 63 ml/min; Glucose 121 mg/dl (70-99); Potassium 4.7 mmol/L (3.5-5.1); Sodium 131 mmol/L (135-145); eGFR > 60.00
--- NOTE | 2023-09-24 10:13 | W.PN.HOSP.TC ---
Today's Communication/Plan
-
dc to snf
PO abx on dc
Assessment / Plan
Assessment / Plan
General:�Comfortable and Conversant
HEENT:�Anicteric and Moist mucous membranes
Respiratory:�Clear and Non Labored Respirations
Cardiac:�S1/S2 and Regular Rhythm
GI:�Soft and Non Tender
Musculoskeletal: Other (+2 edema bilateral lower ext)
Skin:�Warm and Other b/l amando wrap LE; less erythematous
Neuro:�Awake, Alert
Psych:�Calm
Left Lower Extremity Cellulitis, secondary to infected chronic venous insufficiency wounds
-wound care
-ID following
cw abx per ID cefepime. transition to levofloxacin 750mg po qd through 09/26/23
venous doppler neg for DVT
Dilaudid as needed for wound change. Added Flexeril for muscle spasms. Added oxycodone as needed for pain
she has an appointment in october for laser surgery for her venous insufficiency
Acute Kidney Injury
resolved
-DC HCTZ; cw lisinopril, cw Lasix
-UA noted; denies dysuria
-Check bladder scans
Mild hyperkalemia
-K 5.2 trend for now.resolved.
hyponatremia
Na 131
Monitor; urine and serum studies suggest increase free water intake; fluid restrict and monitor; if still dont improve then nephro eval
Hyperlipidemia
monitor
Essential Hypertension
Continue with lisinopril, cw Lasix
DC HCTZ for now as on lasix
Stage II pressure injury of sacrum on admission
Restless Leg Syndrome
-Continue Ropinirole
Lumbar Radiculopathy
-Decreased gabapentin dose 300mg BID with 600mg at Bedtime
DVT proph: SC Heparin
Code Status: DNR
PT/OT-SNF. Cm aware. SNF today.
More than 30 minutes spent in discharge including
Final examination of the patient
Summarizing hospital stay
Instructions for continuing care to all relevant caregivers
Preparation of discharge records, prescriptions, and referral forms
Total time spent (in minutes): 45
Anticipated Discharge: Today
Subjective/Interval History
-
Date of Service: September 24, 2023
No overnight event
States of leg pain
Objective Data
-
Labs:
Laboratory Results
09/24/23
09:03
Sodium 131 L
Potassium 4.7
Chloride 97 L
Carbon Dioxide 29
BUN 36 H
Creatinine 0.7
Glucose 121 H
Calcium 9.1
Vital Signs:
Vital Signs
Temp Pulse Resp BP Pulse Ox
97.7 F 85 18 152/65 98
09/24/23 07:00 09/24/23 08:28 09/24/23 07:00 09/24/23 08:28 09/24/23 07:00
I&O
09/23/23 09/24/23 09/25/23
06:59 06:59 06:59
Intake Total 1440 / 1440 1020 / 1020
Output Total 2350 / 2350 2700 / 2700
Balance -910 / -910 -1680 / -1680
--- NOTE | 2023-09-24 10:22 | W.DCSUMMARY ---
Discharge Summary
Discharge Data
Date of Admission: 09/15/23
Date of Discharge: 09/24/23
-
Pending Results: No
Hospital Course
88-year-old female past medical history of hypertension, restless leg syndrome, lumbar radiculopathy, obesity, who is presented with left lower extremity infection. Infectious disease was consulted. Patient was started on IV cefepime. Lower
extremity venous Doppler was negative for DVT. Patient with significant pain and pain control. Implemented. Patient also ANGEL LUIS. Hydrochlorothiazide was discontinued. Lisinopril and Lasix was continued. Mild hyperkalemia resolved. Patient was
ordered physical and Occupational Therapy. Per infectious disease patient will be transition from IV cefepime to p.o. Levaquin on discharge. Patient will be discharged to half-way facility.
Discharge Plan
-
Patient Disposition: [facility]NF
Discharge Diagnosis/Procedures: Left Lower Extremity Cellulitis, secondary to infected chronic venous insufficiency wounds
Acute kidney injury
Hyponatremia
Condition: Fair
Diet: As tolerated and Restrict fluids to 48 oz
Activity: As tolerated
Driving Restrictions: Not until seen by your Dr
Bathing Restrictions: None
Blood Work: BMP in 1 week via primary doctor.
Activity Restrictions/Additional Instructions:
Wound Care Instructions Left lateral and medial leg wounds- Clean with 1/4 strength Dakins. Apply adaptic, ABD and secure with sydney and tape. May add alginate over adaptic for increased drainage. Change BID and PRN for drainage.
Right lateral and medial leg wounds- Clean with normal saline or soap and water. Apply adaptic, ABD and secure with sydney and tape. Change daily and PRN for drainage.
Stage 2 PI to sacrum- Clean with soap and water or saline. Apply zinc barrier ointment with continence care PRN.
Air surface to bed
Turning schedule
Continue compression with Farrow wraps
Air or gel cushion to chair
Frequent continence care with use of barrier ointment as needed
Keep heels off-loaded with pillows under calves
Follow up at wound care center call for an appointment.
Referrals:
Mary Griffin MD [Family Provider] - in less than 1 week
Prescriptions:
New
Dakin's Solution 0.125 % Solution
1 applic topical BID Qty: 0 0RF
cyclobenzaprine 10 mg Tablet
5 mg PO TID Qty: 0 0RF
ammonium lactate 12 % Lotion
1 applic topical BID Qty: 0 0RF
lisinopril 20 mg tablet
20 mg PO DAILY Qty: 1 0RF
acetaminophen 325 mg Tablet
650 mg PO Q4HPRN PRN (Reason: mild pain or temp > 100.4 F) Qty: 0 0RF
gabapentin 300 mg Capsule
300 mg PO BID@0800,1400 Qty: 0 0RF
gabapentin 300 mg Capsule
600 mg PO HS Qty: 0 0RF
levofloxacin 750 mg tablet
750 mg PO DAILY Qty: 3 0RF
Continued
ropinirole 0.5 mg tablet
0.5 mg PO QID
alendronate [Fosamax] 70 mg Tablet
70 mg PO QWEEK
furosemide [Lasix] 20 mg Tablet
20 mg PO DAILY
Dakin's Solution 0.125 % Solution
1 applic TOPICAL DAILY
Discontinued
lisinopril-hydrochlorothiazide 20-25 mg tablet
1 tab PO DAILY
ibuprofen 400 mg Tablet
400 mg PO Q6HPRN PRN (Reason: mod pain) Qty: 1 0RF
gabapentin 600 mg Tablet
600 mg PO TID
Discharge Orders:
Discharge Patient (As Directed); Ordered 09/24/23
Ordered By: Marshal Gerard
Discharge Date and Time
Print Language: PAPUA [place]
--- NOTE | 2023-09-24 10:41 | CM ---
received a call back from sara at [facility] to say she has auth # [id number] with [employer] 09/30/23.sent tiger text to attending,spoke with floor nurse nathaniel.discussed with patient, left m with daughter dillon.phone number to call
report is [phone] and fax # is [phone].ambulance transport will be arranged.
[2023-09-24] MEDS: MILK OF MAGNESIA 30 ML PO (12:27)
[2023-09-24 13:50] VITALS: BP 133/57
== END 2023-09-24 14:28 | DRG 300 ==
LOC: 3 WEST ACU 17:11
PROVIDERS: Physician Assistant Medical; ADMITTING PHYSICIAN Internal Medicine; ATTENDING PHYSICIAN Hospitalist; CONSULT PHYSICIAN Internal Medicine Infectious Disease; EMERGENCY PHYSICIAN Emergency Medicine; FAMILY PHYSICIAN Family Medicine
DX: I87.2 Venous insufficiency (chronic) (peripheral) (principal); E87.1 Hypo-osmolality and hyponatremia; L03.116 Cellulitis of left lower limb; N17.9 Acute kidney failure, unspecified; L97.821 Non-pressure chronic ulcer of other part of left lower leg limited to breakdown of skin; E78.00 Pure hypercholesterolemia, unspecified; I10 Essential (primary) hypertension; M81.0 Age-related osteoporosis without current pathological fracture; M62.838 Other muscle spasm; L89.152 Pressure ulcer of sacral region, stage 2; M54.16 Radiculopathy, lumbar region; G25.81 Restless legs syndrome; Z66 Do not resuscitate; Z88.8 Allergy status to other drugs, medicaments and biological substances; E87.5 Hyperkalemia
CPT/HCPCS: 80048; 80053; 81003; 81015; 83605; 83735; 83930; 83935; 84300; 85025; 85027; 87040; 87086; 93005; 93306; 93970; 96374; 96375; 97116; 97163; 97167; 97530; 97535; 99285

== ENCOUNTER 2024-06-01 08:46 | Emergency (ER) | payer SELFPAY ==
[2024-06-01 08:47] VITALS: BP 133/59
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
[2024-06-01 09:51] VITALS: BMI 32.6
[2024-06-01 10:00] VITALS: BP 115/61; BP 148/59
[2024-06-01] MEDS: MORPHINE SULFATE 4 MG IV (10:56)
[2024-06-01 11:03] LABS: % Basophils 0.2 % (0-2); % Eosinophils 0.3 % (0-6); % Immature Granulocytes 0.5 % (0-0.5); % Lymphocytes 11.5 % (20.5-51.1); % Monocytes 5.5 % (1.7-9.3); Absolute Immature Granulocytes 0.1 10^3/uL (0-0.05); Absolute Lymphocytes 1.1 10^3/uL (1.2-3.4); Absolute Monocytes 0.5 10^3/uL (0.1-0.6); Absolute Neutrophils 7.9 10^3/uL (1.4-6.5); Hematocrit 40.1 % (37.0-47.0); Hemoglobin 13.1 g/dL (12.0-16.0); Mean Corp Hgb Conc. 32.7 g/dL (33.0-37.0); Mean Corpuscular Hgb 29.4 pg (27.0-31.0); Mean Corpuscular Volume 90.1 fL (81.0-99.0); Mean Platelet Volume 9.3 fL (7.4-10.4); Nucleated Red Blood Cells % 0 %; Platelet Count 204 10^3/uL (130-400); Red Blood Cell Count 4.45 10^6/uL (4.20-5.40); White Blood Cell Count 9.7 10^3/uL (4.8-10.8)
[2024-06-01 11:11] LABS: INR 0.93
[2024-06-01 11:12] LABS: APTT 24.9 Sec (23.4-35.0)
[2024-06-01 11:16] LABS: ALT (SGPT) 24 U/L (0-35); AST (SGOT) 29 U/L (14-36); Albumin 4.2 g/dl (3.5-5.0); Alkaline Phosphatase 44 U/L (38-126); Blood Urea Nitrogen 34 mg/dl (7-17); Calcium 9.3 mg/dl (8.4-10.2); Carbon Dioxide 27 mmol/L (22-30); Chloride 105 mmol/L (98-107); Estimated Creatinine Clearance 60 ml/min; Glucose 136 mg/dl (70-99); Potassium 4.2 mmol/L (3.5-5.1); Sodium 141 mmol/L (135-145); Total Bilirubin 0.3 mg/dl (0.2-1.3); Total Protein 7.1 g/dl (6.3-8.2); eGFR > 60.00
[2024-06-01 13:15] VITALS: BP 136/63
[2024-06-01 14:45] VITALS: BP 136/63
== END 2024-06-01 14:45 | disposition short-term general hospital (02) ==
LOC: EMR 08:46
PROVIDERS: EMERGENCY PHYSICIAN Student in an Organized Health Care Education/Training Program; FAMILY PHYSICIAN Family Medicine
DX: S72.002A Fracture of unspecified part of neck of left femur, initial encounter for closed fracture (principal); M97.02XA Periprosthetic fracture around internal prosthetic left hip joint, initial encounter; V49.50XA Passenger injured in collision with unspecified motor vehicles in traffic accident, initial encounter; I10 Essential (primary) hypertension; E78.00 Pure hypercholesterolemia, unspecified
CPT/HCPCS: 96374; 99285; 72170; 73552; 80053; 85025; 85610; 85730; 86850; 86900; 86901; 93005